=== PATIENT | female | born 1935 | race African-American/Black ===

== ENCOUNTER 2019-02-09 15:36 | Inpatient (IN) | payer MEDICARE, MEDICAID ==
[~2019-02-09] VITALS: Ht 160 cm; Wt 51.3 kg
[2019-02-09 15:40] VITALS: BP 150/72
--- NOTE | 2019-02-09 15:40 | NUR ---
ED Nurse Note: pt was brought in by ambulance c/o near syncopal episode, no loc per ems, pt is confused, unable to state name, pt keep on stating she will be picked up by her mom. pt suddenly laugh and mention things and name. pt vs within normal limit. will continue to monitor.
[2019-02-09] MEDS ORDERED: MULTIVITAMINS1 EAC8 ORAL (15:48)
[2019-02-09] MEDS ORDERED: CRANBERRY450 M4 PO (15:48)
[2019-02-09] MEDS ORDERED: CAL MAG ZINC +1 EACH PO (15:48)
[2019-02-09] MEDS ORDERED: ARICEPT10 MG ORAL (15:48)
[2019-02-09] MEDS ORDERED: ASPIRIN81 MG ORAL (15:48)
[2019-02-09] MEDS ORDERED: NAMENDA10 MG ORAL (15:48)
[2019-02-09] MEDS ORDERED: TRAMADOL HCL50 MG ORAL (15:48)
[2019-02-09] MEDS ORDERED: ACETAMINOPHEN325 M1 ORAL (15:48)
[2019-02-09] MEDS ORDERED: DULCOLAX10 MG RC (15:48)
[2019-02-09] MEDS ORDERED: COLACE100 MG ORAL (15:48)
[2019-02-09] MEDS ORDERED: NORVASC10 MG ORAL (15:48)
--- NOTE | 2019-02-09 16:10 | NUR ---
ED Nurse Note: pt unable to give urine sample for now.
[2019-02-09 16:14] LABS: BASOPHILS % (AUTO) 1.1 % (0.0-2.0); EOSINOPHILS % (AUTO) 1.1 % (0.0-3.0); HEMATOCRIT 37.4 % (37.0-47.0); LYMPHOCYTES % (AUTO) 40.2 % (20.0-45.0); MEAN CORPUSCULAR VOLUME 79 FL (80-99); MONOCYTES % (AUTO) 7.2 % (1.0-10.0); NEUTROPHILS % (AUTO) 50.4 % (45.0-75.0); PLATELET COUNT 178 K/UL (150-450); RED BLOOD COUNT 4.74 M/UL (4.20-5.40); RED CELL DISTRIBUTION WIDTH 12.4 % (11.6-14.8); WHITE BLOOD COUNT 4.9 K/UL (4.8-10.8)
[2019-02-09 16:27] LABS: ANION GAP 11 mmol/L (5-15); BLOOD UREA NITROGEN 19 mg/dL (7-18); CALCIUM 9.3 MG/DL (8.5-10.1); CARBON DIOXIDE 27 MMOL/L (21-32); CHLORIDE 108 MMOL/L (98-107); CREATININE 1.5 MG/DL (0.55-1.30); POTASSIUM 3.8 MMOL/L (3.5-5.1); SODIUM 145 MMOL/L (136-145)
--- NOTE | 2019-02-09 16:37 | Emergency Room Report ---
History of Present Illness General Chief Complaint: Syncope Source: Patient, EMS Present Illness HPI Patient is an 83-year-old female sent in by [facility] after possible syncopal episode. Patient had been noted to have syncope at her psych facility. Patient was sent in by [facility]. Patient denies any current complaints. Patient denies any current locations of pain.History is markedly limited by patient's being a poor historian. Allergies: Coded Allergies: No Known Allergies (Unverified , 02/09/19) Patient History Past Medical History: see triage record Reviewed Nursing Documentation: PMH: Agreed; PSxH: Agreed Nursing Documentation-PMH Past Medical History: No History, Except For Hx Cerebrovascular Accident: Yes Review of Systems All Other Systems: limited - Review of systems: Review systems is limited by patient's being a poor historian Physical Exam Vital Signs Date Time Temp Pulse Resp B/P (MAP) Pulse Ox O2 Delivery O2 Flow Rate FiO2 02/09/19 15:32 98.2 64 18 132/75 (94) 100 General Appearance: alert, non-toxic, thin, Chronically Ill Head: normocephalic ENT: hearing grossly normal Neck: full range of motion Respiratory: normal inspection, lungs clear Gastrointestinal: normal inspection, normal bowel sounds, non tender, soft Musculoskeletal: normal inspection, back normal Neurologic: normal inspection, alert, oriented x3 Skin: normal inspection Medical Decision Making Restraint Attestation I, Stanley Crisostomo MD, have personally evaluated this patient. Laboratory tests have been reviewed and addressed accordingly. The patient is deemed to present a danger to themselves and/or others. This is based on the exam, history ( provided by patient, EMS/[facility] and/or family) and observed or reported behavior. Attempts for non-invasive measures have been considered and/or attempted, however, have been futile. It is in the best interest of the nursing staff, the patient, and others involved in this patient's care that behavioral restraints be applied. Patient evaluation reveals the following: Patient with unsteady gait attempting to get out of bed. Diagnostic Impression: Primary Impression: Syncope Additional Impressions: Hypothyroid Elevated brain natriuretic peptide (BNP) level ER Course Patient presented for syncope. Differential diagnosis include was not limited to dehydration, CVA, arrhythmia, congestive heart failure among others. Because of complexity of patient's case laboratory testing and imaging studies were ordered. Patient was noted to be awake and alert. CT imaging was ordered however patient refused. Patient was noted to have elevated BNP. She does not appear to be in any respiratory distress. Dr. Moreira was contacted for inpatient management. Labs Test 02/09/19 15:54 02/09/19 18:20 White Blood Count 4.9 K/UL (4.8-10.8) Red Blood Count 4.74 M/UL (4.20-5.40) Hemoglobin 12.0 G/DL (12.0-16.0) Hematocrit 37.4 % (37.0-47.0) Mean Corpuscular Volume 79 FL (80-99) Mean Corpuscular Hemoglobin 25.4 PG (27.0-31.0) Mean Corpuscular Hemoglobin Concent 32.2 G/DL (32.0-36.0) Red Cell Distribution Width 12.4 % (11.6-14.8) Platelet Count 178 K/UL (150-450) Mean Platelet Volume 6.2 FL (6.5-10.1) Neutrophils (%) (Auto) 50.4 % (45.0-75.0) Lymphocytes (%) (Auto) 40.2 % (20.0-45.0) Monocytes (%) (Auto) 7.2 % (1.0-10.0) Eosinophils (%) (Auto) 1.1 % (0.0-3.0) Basophils (%) (Auto) 1.1 % (0.0-2.0) D-Dimer 0.88 mg/L FEU (0.00-0.49) Sodium Level 145 MMOL/L (136-145) Potassium Level 3.8 MMOL/L (3.5-5.1) Chloride Level 108 MMOL/L (98-107) Carbon Dioxide Level 27 MMOL/L (21-32) Anion Gap 11 mmol/L (5-15) Blood Urea Nitrogen 19 mg/dL (7-18) Creatinine 1.5 MG/DL (0.55-1.30) Estimat Glomerular Filtration Rate mL/min (>60) Glucose Level 166 MG/DL (74-106) Calcium Level 9.3 MG/DL (8.5-10.1) Total Bilirubin 0.6 MG/DL (0.2-1.0) Aspartate Amino Transf (AST/SGOT) 16 U/L (15-37) Alanine Aminotransferase (ALT/SGPT) 17 U/L (12-78) Alkaline Phosphatase 62 U/L (46-116) Troponin I 0.000 ng/mL (0.000-0.056) Pro-B-Type Natriuretic Peptide 790 pg/mL (0-125) Total Protein 7.2 G/DL (6.4-8.2) Albumin 3.9 G/DL (3.4-5.0) Globulin 3.3 g/dL Albumin/Globulin Ratio 1.2 (1.0-2.7) Lipase 169 U/L (73-393) Thyroid Stimulating Hormone (TSH) 6.103 uiU/mL (0.358-3.740) Urine Color Yellow Urine Appearance Clear Urine pH 5 (4.5-8.0) Urine Specific [place] 1.020 (1.005-1.035) Urine Protein 2+ (NEGATIVE) Urine Glucose (UA) Negative (NEGATIVE) Urine Ketones Negative (NEGATIVE) Urine Blood Negative (NEGATIVE) Urine Nitrite Negative (NEGATIVE) Urine Bilirubin Negative (NEGATIVE) Urine Urobilinogen Normal MG/DL (0.0-1.0) Urine Leukocyte Esterase Negative (NEGATIVE) Urine RBC 0 /HPF (0 - 2) Urine WBC 0 /HPF (0 - 2) Urine Squamous Epithelial Cells None /LPF (NONE/OCC) Urine Bacteria None /HPF (NONE) Urine Mucus Occasional /LPF EKG Diagnostic Results Rate: normal Rhythm: NSR ST Segments: no acute changes Rhythm Strip Diag. Results EP Interpretation: yes Rhythm: NSR, no PVC's, no ectopy Last Vital Signs Date Time Temp Pulse Resp B/P (MAP) Pulse Ox O2 Delivery O2 Flow Rate FiO2 02/09/19 15:40 98.2 70 18 150/72 100 Status: unchanged Disposition: ADMITTED INPATIENT Condition: Stable Stanley Crisostomo MD Feb 09, 2019 16:37
[2019-02-09 16:38] LABS: ALANINE AMINOTRANSFERASE 17 U/L (12-78); ALBUMIN 3.9 G/DL (3.4-5.0); ALBUMIN/GLOBULIN RATIO 1.2 (1.0-2.7); ALKALINE PHOSPHATASE 62 U/L (46-116); ASPARTATE AMINO TRANSFERASE 16 U/L (15-37); BILIRUBIN,TOTAL 0.6 MG/DL (0.2-1.0)
[2019-02-09 17:00] VITALS: BP 130/73
[2019-02-09 18:35] LABS: APPEARANCE,URINE CLEAR; BILIRUBIN, URINE NEGATIVE (NEGATIVE); GLUCOSE, URINE (UA) NEGATIVE (NEGATIVE); KETONES,URINE NEGATIVE (NEGATIVE); LEUKOCYTE ESTERASE ,URINE NEGATIVE (NEGATIVE); NITRITE,URINE NEGATIVE (NEGATIVE); PH,URINE 5 (4.5-8.0); PROTEIN,URINE 2+ (NEGATIVE); UROBILINOGEN,URINE NORMAL MG/DL (0.0-1.0)
[2019-02-09 18:40] LABS: COLOR,URINE YELLOW
[2019-02-09 19:29] VITALS: BP 135/89
--- NOTE | 2019-02-09 19:30 | NUR ---
ED Nurse Note: RECIEVED REPORT FROM AM NURSE TO RESUME CARE, PT IS SITTING ON SIDE OF BED, AWAKE AND ALERT, PT IS NOT ON MONITORING, PT HAS SITTER AT BEDSIDE PT IS CONFUSED AND DISORIENTED, PT WAITING FOR ROOM FOR ADMISSION TO HOSPITAL, PT IS TELE ADMIT FOR SYNCOPE SO PLACED ON MONITOIRNG, V/S TAKEN, PT DNIES PAIN AND HAS NO SOB OR LABORED BREATHING NOTED, BEDSIDE COMMODE AT BEDSIDE, PT IS AMBULATING NEXT TO BED, WILL RESUME CARE ORDERED AND CONTINUE TO CLOSELY MONITOR AND PREPARE FOR ADMISSION.
[2019-02-09 19:35] VITALS: BP 135/89
--- NOTE | 2019-02-09 21:05 | NUR ---
ED Nurse Note: PT CONTINUES TO REST IN BED, CONVERSING WITH SITTER AT BEDSIDE AND REQUIRING VERY FREQUENT RE-ORIENTATION AND DIRECTION, PT THINKS SHE NEEDS TO GO AND TAKE CARE OF HER MOTHER, PT DENIES PAIN, NO SOB OR LABORED BREATHING, PT HS ROOM FOR ADMISISON, REPORT GIVEN TO MYAH BUNDY ON UNIT, PT HAS PATENT IV LINE, SITTER REMAINS AT BEDSIDE, BELONGINGS LIST [id number] AND SWABS COLLECTED, PT BEING TAKEN TO FLOOR UNIT VIA GURNEY AND ACLS PROTOCOLS WITH ER-TECH AND RN.
--- NOTE | 2019-02-09 21:45 | NUR ---
NURSE NOTES: RECEIVED PATIENT FROM ER VIA MILAN, REPORT RECEIVED FROM CELERY WRAPPER CRISTIAN. ADM DX OF SYNCOPE/GEN WEAKNESS, PRIMARY DR ONEAL. PATIENT CAME WITH SITTER DUE TO BEING DISORIENTED AND CONFUSED. ON RA, NO SOB, NO ACUTE DISTRESS. IV ON RFA INTACT, PATENT. SKIN INTACT. BELONGINGS CHECKED. ORIENTED PATIENT TO SURROUNDINGS. 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 BED IN LOWEST POSITION, LOCKED, ALARMS ON. CALL LIGHT IN REACH. D-DIMER NOTED 0.88, DR ONEAL MADE AWARE.
[2019-02-09 22:00] VITALS: BP 143/87
--- NOTE | 2019-02-09 22:10 | Consultation ---
History of Present Illness General Date patient seen: Feb 09, 2019 Chief Complaint: Syncope Referring physician: Dr. Moreira Present Illness HPI Karen Mancilla is an 83-year-old female with a PMH of dementia who is a psychiatric SNF patient was BIBA to [facility] after possible episode of syncope. Neurological consultation has been requested for her at this time. She is in bed, moving all extremities and accompanied by a sitter at this time. She is very confused, also possibly hallucinating. Allergies: Coded Allergies: No Known Allergies (Unverified , 02/09/19) Medication History Scheduled Amlodipine Besylate (Norvasc), 10 MG ORAL DAILY, (Reported) Aspirin* (Aspirin*), 81 MG ORAL DAILY, (Reported) Docusate Sodium* (Colace*), 100 MG ORAL DAILY, (Reported) Donepezil Hcl* (Aricept*), 10 MG ORAL DAILY, (Reported) Memantine Hcl* (Namenda*), 10 MG ORAL DAILY, (Reported) Multivitamin With Minerals (Multivitamins With Minerals*), 1 TAB ORAL DAILY, ( Reported) Scheduled PRN Acetaminophen* (Acetaminophen 325MG Tablet*), 650 MG ORAL Q4H PRN for Pain Scale (3-5), (Reported) Tramadol Hcl* (Ultram*), 50 MG ORAL Q6H PRN for For Pain, (Reported) Miscellaneous Medications Bisacodyl (Dulcolax), 10 MG RC, (Reported) Ca Carb/Vit D3/Mag Ox/Zn Oxide (Yusef Mag Zinc + D Tablet), 1 EACH PO, (Reported) Cranberry Fruit Concentrate (Cranberry), 450 MG PO, (Reported) Patient History Limited by: medical condition History Provided By: Medical Record Healthcare decision maker Resuscitation status Advanced Directive on File Past Medical/Surgical History Past Medical/Surgical History: (1) Blind left eye Physical Exam General Appearance: WD/WN, no apparent distress, alert, confused, thin HEENT: normocephalic, atraumatic, anicteric, mucous membranes moist, PERRL, EOMI, pharynx normal, supple, no JVD Neck: non-tender, normal alignment, supple, normal inspection Respiratory/Chest: normal breath sounds, no respiratory distress, no accessory muscle use Cardiovascular/Chest: normal peripheral pulses Extremities: normal range of motion, non-tender, normal inspection, no calf tenderness, normal capillary refill, non-pitting Skin Exam: normal pigmentation, warm/dry Neurologic: alert, responsive, motor weakness - generalized but AG x 4, disoriented, other Physical Exam Narrative Patient is alert and answers to her name but does not follow commands, she is moving all extremities and is AG with them. She tracks with her eyes and responds to unseen stimuli at times. Last 24 Hour Vital Signs Date Time Temp Pulse Resp B/P (MAP) Pulse Ox O2 Delivery O2 Flow Rate FiO2 02/09/19 21:29 98.2 94 12 135/89 100 Room Air 02/09/19 19:35 98.2 94 12 135/89 100 Room Air 02/09/19 19:29 101 12 135/89 98 Room Air 02/09/19 17:00 80 20 130/73 100 Room Air 02/09/19 15:40 98.2 70 18 150/72 100 02/09/19 15:32 98.2 64 18 132/75 (94) 100 Laboratory Tests Test 02/09/19 15:54 02/09/19 18:20 White Blood Count 4.9 K/UL (4.8-10.8) Red Blood Count 4.74 M/UL (4.20-5.40) Hemoglobin 12.0 G/DL (12.0-16.0) Hematocrit 37.4 % (37.0-47.0) Mean Corpuscular Volume 79 FL (80-99) L Mean Corpuscular Hemoglobin 25.4 PG (27.0-31.0) L Mean Corpuscular Hemoglobin Concent 32.2 G/DL (32.0-36.0) Red Cell Distribution Width 12.4 % (11.6-14.8) Platelet Count 178 K/UL (150-450) Mean Platelet Volume 6.2 FL (6.5-10.1) L Neutrophils (%) (Auto) 50.4 % (45.0-75.0) Lymphocytes (%) (Auto) 40.2 % (20.0-45.0) Monocytes (%) (Auto) 7.2 % (1.0-10.0) Eosinophils (%) (Auto) 1.1 % (0.0-3.0) Basophils (%) (Auto) 1.1 % (0.0-2.0) D-Dimer 0.88 mg/L FEU (0.00-0.49) H Sodium Level 145 MMOL/L (136-145) Potassium Level 3.8 MMOL/L (3.5-5.1) Chloride Level 108 MMOL/L (98-107) H Carbon Dioxide Level 27 MMOL/L (21-32) Anion Gap 11 mmol/L (5-15) Blood Urea Nitrogen 19 mg/dL (7-18) H Creatinine 1.5 MG/DL (0.55-1.30) H Estimat Glomerular Filtration Rate mL/min (>60) Glucose Level 166 MG/DL (74-106) H Calcium Level 9.3 MG/DL (8.5-10.1) Total Bilirubin 0.6 MG/DL (0.2-1.0) Aspartate Amino Transf (AST/SGOT) 16 U/L (15-37) Alanine Aminotransferase (ALT/SGPT) 17 U/L (12-78) Alkaline Phosphatase 62 U/L (46-116) Troponin I 0.000 ng/mL (0.000-0.056) Pro-B-Type Natriuretic Peptide 790 pg/mL (0-125) H Total Protein 7.2 G/DL (6.4-8.2) Albumin 3.9 G/DL (3.4-5.0) Globulin 3.3 g/dL Albumin/Globulin Ratio 1.2 (1.0-2.7) Lipase 169 U/L (73-393) Thyroid Stimulating Hormone (TSH) 6.103 uiU/mL (0.358-3.740) Urine Color Yellow Urine Appearance Clear Urine pH 5 (4.5-8.0) Urine Specific [place] 1.020 (1.005-1.035) Urine Protein 2+ (NEGATIVE) H Urine Glucose (UA) Negative (NEGATIVE) Urine Ketones Negative (NEGATIVE) Urine Blood Negative (NEGATIVE) Urine Nitrite Negative (NEGATIVE) Urine Bilirubin Negative (NEGATIVE) Urine Urobilinogen Normal MG/DL (0.0-1.0) Urine Leukocyte Esterase Negative (NEGATIVE) Urine RBC 0 /HPF (0 - 2) Urine WBC 0 /HPF (0 - 2) Urine Squamous Epithelial Cells None /LPF (NONE/OCC) Urine Bacteria None /HPF (NONE) Urine Mucus Occasional /LPF Height (Feet): 5 Height (Inches): 3.00 Weight (Pounds): 100 Assessment/Plan Problem List: (1) Blind left eye ICD Codes: H54.40 - Blindness, one eye, unspecified eye SNOMED: 429681330 (2) Hypothyroid ICD Codes: E03.9 - Hypothyroidism, unspecified SNOMED: 42933191, 720720536 (3) Elevated brain natriuretic peptide (BNP) level ICD Codes: R79.89 - Other specified abnormal findings of blood chemistry SNOMED: 855978669, 775987526 (4) Syncope ICD Codes: R55 - Syncope and collapse SNOMED: 680932230 Status: stable Assessment/Plan: Dementia with Syncope, Possible delirium with non focal exam. Will perform MRI Brain w/o contrast , given possible TIA Q4 Hour Neuro Obs SBP<140 Check TSH- treat Hypothryoidism with 25mcg/ day to start if present Check Lipids, Iron panel PT Eval Sitter as needed Avoid administration of benzodiazapenes, haldol, opioids, and anticholinergic drugs. Frequently reorient the patient Help maintain good sleep hygiene by making the room dark and quiet at night and minimizing non essential care interventions. Check Swallow with Giuliana Jarvis N.P. Feb 09, 2019 22:10
[2019-02-09] MEDS ORDERED: Acetaminophen 500mg (ES) tab ORAL PRN (22:45)
[2019-02-10] VITALS (7 sets, daily range): BP systolic 143–173; BP diastolic 78–87
--- NOTE | 2019-02-10 00:15 | Consultation ---
DATE OF CONSULTATION: 02/09/2019 CONSULTING PHYSICIAN: Christiano Fernández M.D. HISTORY OF PRESENT ILLNESS: This is an 83-year-old female who was familiar with Group Home. The patient has a multiple problems including hypertension, dementia, anxiety disorder, constipation, arthritis. In addition, she has a history of anxiety. The patient has poor memory. She is a poor historian and unable to answer the questions appropriately. The patient has been uncooperative with the head CT. The patient is not able to understand process, communicate, nor appreciate the information given to her. PAST PSYCHIATRIC HISTORY: Anxiety, dementia. No suicide attempt. PAST MEDICAL HISTORY: As above. ALLERGIES: No known drug allergies. SUBSTANCE ABUSE HISTORY: No known history of illicit drug use or alcohol. MENTAL STATUS EXAMINATION: The patient is alert, oriented times self, place, however she has poor insight into the situation she is in due to cognitive impairment and poor memory. The patient's mood is irritable. Affect is constricted, congruent with mood. Thought process, concrete and illogical. Thought content, no suicidal or homicidal ideation. She is paranoid. Memory is impaired. ASSESSMENT: [place] I Dementia, most likely Alzheimer. Anxiety disorder. [place] II Deferred. [place] III As above. [place] IV As above. [place] V 20. PLAN: 1. The patient was discontinued on Namenda or Aricept. 2. We will start the patient on Celexa 10 mg in the morning. We will continue to follow and readjust the medications. 3. The patient lacks capacity to use head CT. She does not have capacity to make decisions. Christiano Fernández M.D. DR: LORIE JOB#: [id number] CC:
--- NOTE | 2019-02-10 07:07 | NUR ---
NURSE NOTES: Received patient from Cristy. RN in bed, patient is alert, and confused. sitter at bedside. IV is RFA, SL. Bed is on lowest level, brakes engaged for safety. Call light is within easy reach. Will continue with plan of care.
--- NOTE | 2019-02-10 07:11 | NUR ---
HAND-OFF: Report given to Torie GLASGOW.
[2019-02-10 08:33] LABS: BASOPHILS % (AUTO) 0.8 % (0.0-2.0); EOSINOPHILS % (AUTO) 1.2 % (0.0-3.0); HEMATOCRIT 37.1 % (37.0-47.0); HEMOGLOBIN 11.8 G/DL (12.0-16.0); LYMPHOCYTES % (AUTO) 38.4 % (20.0-45.0); MEAN CORPUSCULAR VOLUME 81 FL (80-99); MONOCYTES % (AUTO) 8.9 % (1.0-10.0); NEUTROPHILS % (AUTO) 50.8 % (45.0-75.0); PLATELET COUNT 180 K/UL (150-450); RED BLOOD COUNT 4.57 M/UL (4.20-5.40); RED CELL DISTRIBUTION WIDTH 12.8 % (11.6-14.8)
[2019-02-10] MEDS: Citalopram Hydrobromide 10mg Tab ORAL SCH (08:44)
--- NOTE | 2019-02-10 08:59 | NUR ---
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 GENERALIZED WEAKNESS VS: BP 150/72, P 101, T 98.2, RR 20, SpO2 100 BUN 19, CR 1.5, GLUCOSE 166, TSH 6.103 IS:TYLENOL 500MG CELEXA 10mg ADMITTED TO TELE DCP:RETURN TO [facility]
[2019-02-10 09:01] LABS: ALANINE AMINOTRANSFERASE 20 U/L (12-78); ALBUMIN 3.3 G/DL (3.4-5.0); ALBUMIN/GLOBULIN RATIO 0.9 (1.0-2.7); ALKALINE PHOSPHATASE 57 U/L (46-116); ANION GAP 8 mmol/L (5-15); ASPARTATE AMINO TRANSFERASE 16 U/L (15-37); BILIRUBIN,TOTAL 0.7 MG/DL (0.2-1.0); BLOOD UREA NITROGEN 19 mg/dL (7-18); CALCIUM 9.1 MG/DL (8.5-10.1); CARBON DIOXIDE 28 MMOL/L (21-32); CHLORIDE 110 MMOL/L (98-107); CREATININE 1.2 MG/DL (0.55-1.30); POTASSIUM 3.7 MMOL/L (3.5-5.1); SODIUM 146 MMOL/L (136-145)
--- NOTE | 2019-02-10 10:25 | Neurology Progress Note ---
Interim History Interim History Interim History This visit was conducted on February 10, [address] Dragan Farmer. Review of Systems Neuro Review of Systems Exam unchanged- MRI poor study- no acute infarct but nondescriptive due to artifact . Objective Physical Exam Last Vital Signs Date Time Temp Pulse Resp B/P (MAP) Pulse Ox O2 Delivery O2 Flow Rate FiO2 02/10/19 09:00 Room Air 02/10/19 08:00 64 02/10/19 08:00 99.0 17 160/87 (111) 98 Laboratory Tests Test 02/09/19 15:54 02/09/19 18:20 02/10/19 08:03 White Blood Count 4.9 K/UL (4.8-10.8) 5.0 K/UL (4.8-10.8) Red Blood Count 4.74 M/UL (4.20-5.40) 4.57 M/UL (4.20-5.40) Hemoglobin 12.0 G/DL (12.0-16.0) 11.8 G/DL (12.0-16.0) L Hematocrit 37.4 % (37.0-47.0) 37.1 % (37.0-47.0) Mean Corpuscular Volume 79 FL (80-99) L 81 FL (80-99) Mean Corpuscular Hemoglobin 25.4 PG (27.0-31.0) L 25.8 PG (27.0-31.0) L Mean Corpuscular Hemoglobin Concent 32.2 G/DL (32.0-36.0) 31.7 G/DL (32.0-36.0) L Red Cell Distribution Width 12.4 % (11.6-14.8) 12.8 % (11.6-14.8) Platelet Count 178 K/UL (150-450) 180 K/UL (150-450) Mean Platelet Volume 6.2 FL (6.5-10.1) L 6.9 FL (6.5-10.1) Neutrophils (%) (Auto) 50.4 % (45.0-75.0) 50.8 % (45.0-75.0) Lymphocytes (%) (Auto) 40.2 % (20.0-45.0) 38.4 % (20.0-45.0) Monocytes (%) (Auto) 7.2 % (1.0-10.0) 8.9 % (1.0-10.0) Eosinophils (%) (Auto) 1.1 % (0.0-3.0) 1.2 % (0.0-3.0) Basophils (%) (Auto) 1.1 % (0.0-2.0) 0.8 % (0.0-2.0) D-Dimer 0.88 mg/L FEU (0.00-0.49) H Sodium Level 145 MMOL/L (136-145) 146 MMOL/L (136-145) H Potassium Level 3.8 MMOL/L (3.5-5.1) 3.7 MMOL/L (3.5-5.1) Chloride Level 108 MMOL/L (98-107) H 110 MMOL/L (98-107) H Carbon Dioxide Level 27 MMOL/L (21-32) 28 MMOL/L (21-32) Anion Gap 11 mmol/L (5-15) 8 mmol/L (5-15) Blood Urea Nitrogen 19 mg/dL (7-18) H 19 mg/dL (7-18) H Creatinine 1.5 MG/DL (0.55-1.30) H 1.2 MG/DL (0.55-1.30) Estimat Glomerular Filtration Rate mL/min (>60) mL/min (>60) Glucose Level 166 MG/DL (74-106) H 97 MG/DL (74-106) Calcium Level 9.3 MG/DL (8.5-10.1) 9.1 MG/DL (8.5-10.1) Total Bilirubin 0.6 MG/DL (0.2-1.0) 0.7 MG/DL (0.2-1.0) Aspartate Amino Transf (AST/SGOT) 16 U/L (15-37) 16 U/L (15-37) Alanine Aminotransferase (ALT/SGPT) 17 U/L (12-78) 20 U/L (12-78) Alkaline Phosphatase 62 U/L (46-116) 57 U/L (46-116) Troponin I 0.000 ng/mL (0.000-0.056) Pro-B-Type Natriuretic Peptide 790 pg/mL (0-125) H Total Protein 7.2 G/DL (6.4-8.2) 6.8 G/DL (6.4-8.2) Albumin 3.9 G/DL (3.4-5.0) 3.3 G/DL (3.4-5.0) L Globulin 3.3 g/dL 3.5 g/dL Albumin/Globulin Ratio 1.2 (1.0-2.7) 0.9 (1.0-2.7) L Lipase 169 U/L (73-393) Thyroid Stimulating Hormone (TSH) 6.103 uiU/mL (0.358-3.740) Urine Color Yellow Urine Appearance Clear Urine pH 5 (4.5-8.0) Urine Specific [place] 1.020 (1.005-1.035) Urine Protein 2+ (NEGATIVE) H Urine Glucose (UA) Negative (NEGATIVE) Urine Ketones Negative (NEGATIVE) Urine Blood Negative (NEGATIVE) Urine Nitrite Negative (NEGATIVE) Urine Bilirubin Negative (NEGATIVE) Urine Urobilinogen Normal MG/DL (0.0-1.0) Urine Leukocyte Esterase Negative (NEGATIVE) Urine RBC 0 /HPF (0 - 2) Urine WBC 0 /HPF (0 - 2) Urine Squamous Epithelial Cells None /LPF (NONE/OCC) Urine Bacteria None /HPF (NONE) Urine Mucus Occasional /LPF Neurologic Exam Objective General Appearance: WD/WN, no apparent distress, alert, confused, thin HEENT: normocephalic, atraumatic, anicteric, mucous membranes moist, PERRL, EOMI, pharynx normal, supple, no JVD Neck: non-tender, normal alignment, supple, normal inspection Respiratory/Chest: normal breath sounds, no respiratory distress, no accessory muscle use Cardiovascular/Chest: normal peripheral pulses Extremities: normal range of motion, non-tender, normal inspection, no calf tenderness, normal capillary refill, non-pitting Skin Exam: normal pigmentation, warm/dry Neurologic: alert, responsive, motor weakness - generalized but AG x 4, disoriented, other Physical Exam Narrative Patient is alert and answers to her name but does not follow commands, she is moving all extremities and is AG with them. She tracks with her eyes without additional interactions - appears calmer today. PT TOLERATED CURRENT DIET WITHOUT OVERT S/S OF ASPIRATION. PT PARTIALLY MET PO INTAKE GOALS. NURSING STAFF MET ASPIRATION PRECAUTIONS GOALS. Impression/Recommendations Problems: (1) Blind left eye (2) Hypothyroid (3) Elevated brain natriuretic peptide (BNP) level (4) Syncope Diagnostic Impression MRI negative but poor study Patient's baseline is demented but with less agitation than previously seen, likely secondary to hypertension and metabolic disturbance. Swallow study passed Recommendations Patient's exam stable Still recommend SBP<140 as this patient's BP continues to run above this goal by 30 points Q4 Neuro OBs Maintain adequate nutrition PT Eval Stable for discharge from a neurological perspective . Giuliana Watts N.P. Feb 10, 2019 10:25
--- NOTE | 2019-02-10 10:25 | NUR ---
NURSE NOTES: Left a message with Karolyn for Dr. Herrera, pt's BP is 160/87. Will continue to monitor.
--- NOTE | 2019-02-10 11:15 | NUR ---
Dr. Herrera ordered Norvasc 10mg daily. Order carried out and medication administered to pt. will continue to monitor
[2019-02-10] MEDS ORDERED: LORazepam 0.5mg tab ORAL PRN (12:30)
--- NOTE | 2019-02-10 16:05 | Cardiology Report ---
APPROVED REPORT EKG Measurement Heart [id number] Sinus bradycardia Moderate voltage criteria for LVH, may be normal variant Borderline ECG biphasic t waves recommend repeating the ekg
[2019-02-10] MEDS ORDERED: HydrALAZINE 25mg tab ORAL PRN (16:15)
--- NOTE | 2019-02-10 16:17 | Consultation ---
Consult Note Consult Note Dr Ramsay requested consult for BP management Patient is an 83-year-old female [facility] by [facility] after possible syncopal episode. Patient had been noted to have syncope at her psych facility. Patient was sent in by [facility]. Patient denies any current complaints. Patient denies any current locations of pain.History is markedly limited by patient's being a poor historian. No Known Allergies (Unverified , 02/09/19) Past Medical History: No History, Except For Hx Cerebrovascular Accident: Yes Dementia HypoThyroid examined data reviewed med list reviewed . Assessment/Plan HTN- Dementia- Syncope- BP control : Norvasc and PRN Hydralazin Gastric support synthroid per orders David Herrera MD Feb 10, 2019 16:17
[2019-02-10] MEDS ORDERED: Acetaminophen 500mg (ES) tab ORAL PRN (16:30)
--- NOTE | 2019-02-10 17:31 | NUR ---
ST NOTE: BEDSIDE SWALLOW EVAL RECEIVED BEDSIDE SWALLOW EVAL CHART REVIEWED PRIOR THE EVALUATION PT IS A 83-YEAR-OLD FEMALE WHO WAS ADMITTED DUE TO SYNCOPE AND GENERAL WEAKNESS. DYSPHAGIA RISK FACTORS: H/O CVA, DEMENTIA, H/O FALLING, HTN. SCHIZOAFFECTIVE DISORDER PT RESIDES AT SNF. PT WAS ON MECH SOFT(CHOPPED) DIET PER PT'S POLST: FULL CODE AND FULL TREATMENT, OKAY TRIAL FOR ARTIFICIAL FEEDING CURRENT STATUS: PT SEEN AT BEDSIDE IN PM. ALERT, REQUIRED MAX CUES TO PARTICIPATE, CONFUSED. GIVEN PO TRIALS: THIN(TSP/CUP), PUREE(TSP) INITIAL IMPRESSION: POOR DENTITION MILDLY ORAL TRANSIT TIME(3 SECONDS) UNTIL PT INITIATED PHARYNGEAL SWALLOW, FAIR LARYNGEAL ELEVATION, NO OVERT S/S OF ASPIRATION. HAS SOME RISK FOR ASPIRATION. RECOMMENDATIONS: 1. CHANGED DIET TO MECH SOFT(GROUND) WITH THIN LIQUIDS. 2. ASPIRATION PRECAUTIONS WITH 1TO1 FEED 3. CONSIDER MBSS IF NEEDED D/W [place]. POSTED ASPIRATION PRECAUTIONS SIGN
[2019-02-10] MEDS: Docusate 100mg cap ORAL SCH (18:27)
--- NOTE | 2019-02-10 19:15 | NUR ---
NURSE NOTES: Received report Torie RN, pt. in bed awake- opens eyes to name, cardiac monitoring on, no signs or symptoms of acute cardiac or respiratory distress noted, bed in lowest position and call light within easy reach, bed alarm on, side rails up x's3 and safety brakes engaged, pt. appears to be sating well on Room air at 97%- no distress noted, comfort measures provided, all needs attended to, pt. is clean and dry in bed, Bilateral wrist restraints removed- pulses palpable in bilateral wrists and skin intact, Left wrist 24G IV intact and patent- SL, safety measures continued, will continue with plan of care.
--- NOTE | 2019-02-10 19:16 | NUR ---
HAND-OFF: Report given to VICKIE GLASGOW.
[2019-02-11] VITALS (7 sets, daily range): BP systolic 113–173; BP diastolic 63–110
--- NOTE | 2019-02-11 00:15 | History and Physical Report ---
DATE OF ADMISSION: 02/09/2019 HISTORY OF PRESENT ILLNESS: The patient is admitted for possible syncope at the [place] [facility], altered mental status, and she had head CT. Also admitted for azotemia. The patient basically denies headache. Denies shortness of breath. Denies cough. Denies chills. The patient is a very poor historian. PAST MEDICAL HISTORY: Organic brain syndrome, history of CVA, history of hypothyroidism, constipation, hypertension. PAST SURGICAL HISTORY: Unable to obtain. MEDICATIONS: Namenda, Colace, bisacodyl, amlodipine. ALLERGIES: No known allergies. FAMILY HISTORY: Unable to obtain. SOCIAL HISTORY: She denies alcohol or illicit drugs. Comes from a [place] [facility]. REVIEW OF SYSTEMS: Unable to obtain, very poor historian. PHYSICAL EXAMINATION: VITAL SIGNS: Temperature 98.8, pulse is 67, blood pressure 161/86. HEENT: PERRLA. NECK: Supple. CHEST: Clear to auscultation. CARDIOVASCULAR: Regular rate and rhythm. GASTROINTESTINAL: Soft. Positive bowel sounds. EXTREMITIES: No edema. NEUROLOGIC: Reflexes equal on both sides. Poor historian. LABORATORY DATA: WBC of 4.9, hemoglobin 12, platelet 178,000. Sodium 145, potassium 3.8, BUN of 19, creatinine 1.5. ASSESSMENT AND PLAN: 1. Agitation. 2. Syncope. 3. History of CVA. 4. Hypertension. Syncopal workup. Dr. Farmer, Dr. Herrera, Dr. Fernández, and Dr. Pressley have been consulted for the above-mentioned diagnoses and treatment. Ngozi Moreira M.D. DR: RAMON JOB#: [id number] CC:
[2019-02-11] MEDS: Levothyroxine 25mcg tab ORAL SCH (05:33)
--- NOTE | 2019-02-11 05:45 | Progress Note ---
DATE: 02/10/2019 NOTE: POOR AUDIO SUBJECTIVE: The patient presents with some agitation, behavior, confused. The patient has waxing and waning consciousness . She is unable to provide any history. The patient's residential. MENTAL STATUS EXAMINATION: The patient is confused, disoriented. Mood is anxious and agitated. Affect is flat. Thought process. PLAN: Continue the current medications. Provide the patient with. Christiano Fernández M.D. DR: JULIANO JOB#: [id number] CC: TABATHA
--- NOTE | 2019-02-11 07:03 | NUR ---
HAND-OFF: Report given to Emely RN, pt. remains stable and no signs of distress noted.
--- NOTE | 2019-02-11 07:05 | NUR ---
NURSE NOTES: Received report from Carlito/RN, Patient is asleep lying semi-zhu's; resting comfortably, on room air, No sign of distress/SOB noted. IV on left wrist patent, no bleeding or infiltration noted. Bed in low position and locked, call light within reach. Will continue plan of care.
[2019-02-11 07:41] LABS: EOSINOPHILS % (AUTO) 1.2 % (0.0-3.0); HEMATOCRIT 41.1 % (37.0-47.0); HEMOGLOBIN 13.1 G/DL (12.0-16.0); MEAN CORPUSCULAR VOLUME 81 FL (80-99); NEUTROPHILS % (AUTO) 53.8 % (45.0-75.0); PLATELET COUNT 188 K/UL (150-450); RED BLOOD COUNT 5.08 M/UL (4.20-5.40); RED CELL DISTRIBUTION WIDTH 12.9 % (11.6-14.8)
--- NOTE | 2019-02-11 07:54 | NUR ---
CASE MANAGEMENT:REVIEW 02/11/19 SI: SYNCOPE. HTN 97.7 63 18 139/69 96% ON RA *LABS CURRENTLY PENDING IS: ASA PO QD SYNTHROID PO QD PROTONIX PO Q12 NORVASC PO QD CELEXA PO QD : TELEMETRY DCP: FROM [facility]
[2019-02-11 08:16] LABS: ALANINE AMINOTRANSFERASE 25 U/L (12-78); ALBUMIN 3.6 G/DL (3.4-5.0); ALBUMIN/GLOBULIN RATIO 0.9 (1.0-2.7); ALKALINE PHOSPHATASE 65 U/L (46-116); ANION GAP 9 mmol/L (5-15); ASPARTATE AMINO TRANSFERASE 29 U/L (15-37); BILIRUBIN,TOTAL 1.1 MG/DL (0.2-1.0); BLOOD UREA NITROGEN 13 mg/dL (7-18); CALCIUM 9.3 MG/DL (8.5-10.1); CARBON DIOXIDE 28 MMOL/L (21-32); CHLORIDE 107 MMOL/L (98-107); CHOLESTEROL 210 MG/DL (< 200); FERRITIN 41 NG/ML (8-388); GAMMA GLUTAMYL TRANSPEPTIDASE 16 U/L (5-85); HDL CHOLESTEROL 110 MG/DL (40-60); PHOSPHORUS 2.9 MG/DL (2.5-4.9); POTASSIUM 3.3 MMOL/L (3.5-5.1); SODIUM 144 MMOL/L (136-145); TRIGLYCERIDES 50 MG/DL (30-150)
[2019-02-11 08:17] LABS: BILIRUBIN,DIRECT 0.2 MG/DL (0.0-0.3)
[2019-02-11 08:40] LABS: % IRON SATURATION 32 % (15-50); IRON 87 ug/dL (50-175); TOTAL IRON BINDING CAPACITY 274 ug/dL (250-450)
[2019-02-11] MEDS: Aspirin Baby 81mg ORAL SCH (09:07)
[2019-02-11] MEDS: Citalopram Hydrobromide 10mg Tab ORAL SCH (09:07)
[2019-02-11] MEDS: Docusate 100mg cap ORAL SCH ×3 (09:07→18:42)
--- NOTE | 2019-02-11 10:11 | NUR ---
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 PT UNABLE TO STAY STILL FOR EXAM, EVEN WITH SEDATION. TJB 10:00
[2019-02-11] MEDS ORDERED: LORazepam Inj 2mg/ml 1ml IV PRN (11:00)
--- NOTE | 2019-02-11 13:08 | NUR ---
Very limited MRI Brain completed. Even with IV 2mg Ativan given, pt went to sleep but would not stay asleep. This was a second attempt. irma
--- NOTE | 2019-02-11 14:10 | Nephrology Progress Note ---
Assessment/Plan Assessment HTN- Dementia- Syncope- Plan K supplement PO BP control : Norvasc and PRN Hydralazine Gastric support synthroid per orders Subjective Constitutional: Reports: malaise Objective Objective Last 24 Hour Vital Signs Date Time Temp Pulse Resp B/P (MAP) Pulse Ox O2 Delivery O2 Flow Rate FiO2 02/11/19 12:00 97.9 77 20 113/67 (82) 96 02/11/19 09:07 95 151/110 02/11/19 09:00 Room Air 02/11/19 08:00 97.6 95 21 151/110 (124) 100 02/11/19 08:00 59 02/11/19 04:00 63 02/11/19 04:00 97.7 63 18 139/69 (92) 96 02/11/19 01:00 84 18 123/63 (83) 97 02/11/19 00:00 87 02/11/19 00:00 98.0 79 18 173/86 (115) 97 02/10/19 23:42 98.0 79 18 173/86 (115) 97 02/10/19 23:35 173/86 02/10/19 21:00 Room Air 02/10/19 20:00 97.6 81 18 143/78 (99) 98 02/10/19 20:00 83 02/10/19 16:00 97.3 79 17 154/82 (106) 98 02/10/19 16:00 120 Intake and Output 02/10/19 02/11/19 18:59 06:59 Intake Total 360 ml Output Total 3 ml 251 ml Balance 357 ml -251 ml Intake Oral 360 ml Output Urine Total 3 ml 251 ml # Bowel Movements 1 1 Laboratory Tests 02/11/19 06:06: White Blood Count 5.0, Red Blood Count 5.08, Hemoglobin 13.1, Hematocrit 41.1, Mean Corpuscular Volume 81, Mean Corpuscular Hemoglobin 25.8L, Mean Corpuscular Hemoglobin Concent 31.9L, Red Cell Distribution Width 12.9, Platelet Count 188, Mean Platelet Volume 6.8, Neutrophils (%) (Auto) 53.8, Lymphocytes (%) (Auto) 36.0, Monocytes (%) (Auto) 8.0, Eosinophils (%) (Auto) 1.2, Basophils (%) (Auto ) 1.0, Sodium Level 144, Potassium Level 3.3L, Chloride Level 107, Carbon Dioxide Level 28, Anion Gap 9, Blood Urea Nitrogen 13, Creatinine 1.0, Estimat Glomerular Filtration Rate , Glucose Level 95, Hemoglobin A1c 5.8, Uric Acid 3.3 , Calcium Level 9.3, Phosphorus Level 2.9, Magnesium Level 2.0, Iron Level 87, Total Iron Binding Capacity 274, Percent Iron Saturation 32, Unsaturated Iron Binding 187, Ferritin 41, Total Bilirubin 1.1H, Direct Bilirubin 0.2, Gamma Glutamyl Transpeptidase 16, Aspartate Amino Transf (AST/SGOT) 29, Alanine Aminotransferase (ALT/SGPT) 25, Alkaline Phosphatase 65, C-Reactive Protein, Quantitative < 0.4, Pro-B-Type Natriuretic Peptide 793H, Total Protein 7.4, Albumin 3.6, Globulin 3.8, Albumin/Globulin Ratio 0.9L, Triglycerides Level 50, Cholesterol Level 210H, LDL Cholesterol 91, HDL Cholesterol 110H, Cholesterol/ HDL Ratio 1.9L, Vitamin B12 Level 1123H, Folate 24.8 Height (Feet): 5 Height (Inches): 3.00 Weight (Pounds): 113 General Appearance: no apparent distress Objective no change David Herrera MD Feb 11, 2019 14:10
--- NOTE | 2019-02-11 15:03 | Diagnostic Imaging Report ---
Indication: Reason For Exam: SYNCOPE Technique: Patient could not be adequately sedated, and only axial diffusion weighted imaging can be obtained. No other sequences available Comparison: none Findings: No abnormal areas of diffusion restriction demonstrated. Impression: Extremely limited exam with only diffusion weighted imaging sequence available. Normal diffusion imaging indicates no evidence of acute infarct. Other pathology not excludable
--- NOTE | 2019-02-11 15:55 | Cardiac Electrophysiology PN ---
Subjective Subjective [id number] Objective Last 24 Hour Vital Signs Date Time Temp Pulse Resp B/P (MAP) Pulse Ox O2 Delivery O2 Flow Rate FiO2 02/11/19 12:00 97.9 77 20 113/67 (82) 96 02/11/19 09:07 95 151/110 02/11/19 09:00 Room Air 02/11/19 08:00 97.6 95 21 151/110 (124) 100 02/11/19 08:00 59 02/11/19 04:00 63 02/11/19 04:00 97.7 63 18 139/69 (92) 96 02/11/19 01:00 84 18 123/63 (83) 97 02/11/19 00:00 87 02/11/19 00:00 98.0 79 18 173/86 (115) 97 02/10/19 23:42 98.0 79 18 173/86 (115) 97 02/10/19 23:35 173/86 02/10/19 21:00 Room Air 02/10/19 20:00 97.6 81 18 143/78 (99) 98 02/10/19 20:00 83 02/10/19 16:00 97.3 79 17 154/82 (106) 98 02/10/19 16:00 120 Intake and Output 02/10/19 02/11/19 19:00 07:00 Intake Total 240 ml Output Total 3 ml 252 ml Balance 237 ml -252 ml Intake Oral 240 ml Output Urine Total 3 ml 252 ml # Bowel Movements 1 1 Laboratory Tests Test 02/11/19 06:06 White Blood Count 5.0 K/UL (4.8-10.8) Red Blood Count 5.08 M/UL (4.20-5.40) Hemoglobin 13.1 G/DL (12.0-16.0) Hematocrit 41.1 % (37.0-47.0) Mean Corpuscular Volume 81 FL (80-99) Mean Corpuscular Hemoglobin 25.8 PG (27.0-31.0) L Mean Corpuscular Hemoglobin Concent 31.9 G/DL (32.0-36.0) L Red Cell Distribution Width 12.9 % (11.6-14.8) Platelet Count 188 K/UL (150-450) Mean Platelet Volume 6.8 FL (6.5-10.1) Neutrophils (%) (Auto) 53.8 % (45.0-75.0) Lymphocytes (%) (Auto) 36.0 % (20.0-45.0) Monocytes (%) (Auto) 8.0 % (1.0-10.0) Eosinophils (%) (Auto) 1.2 % (0.0-3.0) Basophils (%) (Auto) 1.0 % (0.0-2.0) Sodium Level 144 MMOL/L (136-145) Potassium Level 3.3 MMOL/L (3.5-5.1) L Chloride Level 107 MMOL/L (98-107) Carbon Dioxide Level 28 MMOL/L (21-32) Anion Gap 9 mmol/L (5-15) Blood Urea Nitrogen 13 mg/dL (7-18) Creatinine 1.0 MG/DL (0.55-1.30) Estimat Glomerular Filtration Rate mL/min (>60) Glucose Level 95 MG/DL (74-106) Hemoglobin A1c 5.8 % (4.3-6.0) Uric Acid 3.3 MG/DL (2.6-7.2) Calcium Level 9.3 MG/DL (8.5-10.1) Phosphorus Level 2.9 MG/DL (2.5-4.9) Magnesium Level 2.0 MG/DL (1.8-2.4) Iron Level 87 ug/dL (50-175) Total Iron Binding Capacity 274 ug/dL (250-450) Percent Iron Saturation 32 % (15-50) Unsaturated Iron Binding 187 ug/dL (112-346) Ferritin 41 NG/ML (8-388) Total Bilirubin 1.1 MG/DL (0.2-1.0) H Direct Bilirubin 0.2 MG/DL (0.0-0.3) Gamma Glutamyl Transpeptidase 16 U/L (5-85) Aspartate Amino Transf (AST/SGOT) 29 U/L (15-37) Alanine Aminotransferase (ALT/SGPT) 25 U/L (12-78) Alkaline Phosphatase 65 U/L (46-116) C-Reactive Protein, Quantitative < 0.4 mg/dL (0.00-0.90) Pro-B-Type Natriuretic Peptide 793 pg/mL (0-125) H Total Protein 7.4 G/DL (6.4-8.2) Albumin 3.6 G/DL (3.4-5.0) Globulin 3.8 g/dL Albumin/Globulin Ratio 0.9 (1.0-2.7) L Triglycerides Level 50 MG/DL (30-150) Cholesterol Level 210 MG/DL (< 200) H LDL Cholesterol 91 mg/dL (<100) HDL Cholesterol 110 MG/DL (40-60) H Cholesterol/HDL Ratio 1.9 (3.3-4.4) L Vitamin B12 Level 1123 PG/ML (193-986) H Folate 24.8 NG/ML (8.6-58.9) Microbiology Date/Time Source Procedure Growth Status 02/09/19 18:50 Rectum Received Ivan Fernandez MD Feb 11, 2019 15:55
--- NOTE | 2019-02-11 16:45 | NUR ---
NURSE NOTES: Patient has orthostatic vital signs order, but patient is unable to stand.
--- NOTE | 2019-02-11 18:15 | Consultation ---
DATE OF CONSULTATION: 02/11/2019 CARDIOLOGY CONSULTATION CONSULTING PHYSICIAN: Ivan Fernandez M.D. REFERRING PHYSICIAN: Ngozi Moreira M.D. REASON FOR CONSULTATION: Syncope and hypertension. HISTORY OF PRESENT ILLNESS: The patient is an 83-year-old lady with history of dementia, hypothyroidism, history of CVA, and hypertension, who was sent from [facility] after possible syncopal episodes. The patient was sent in by basic ambulance. On arrival, the patient denies any chest pain or palpitation or shortness of breath. The patient is a very poor historian and has been refusing to eat. The patient was admitted and a Cardiology consultation was obtained for further evaluation and management. PAST MEDICAL HISTORY: As mentioned above. FAMILY HISTORY: Noncontributory. SOCIAL HISTORY: She lives in [place]. Does not smoke or drink alcohol. REVIEW OF SYSTEMS: Negative other than what was mentioned in history of present illness. PHYSICAL EXAMINATION: VITAL SIGNS: Blood pressure 113/67, pulse 77, respirations 20, and temperature 98. HEAD AND NECK: Shows no JVD or carotid bruit. She is very cachectic. LUNGS: Clear. CARDIOVASCULAR: Shows regular S1 and S2 with no gallop. ABDOMEN: Soft. EXTREMITIES: No pitting edema. LABORATORY DATA: Labs show sodium 144, potassium 3.3, BUN of 13, creatinine 1, and glucose of 95. Her white count is 5, hemoglobin 13.1, hematocrit of 41, and platelet count is 188,000. Urinalysis is negative. D-dimer is 0.88. Her MRI of the brain was a very limited study with no evidence of acute infarct. ASSESSMENT AND PLAN: 1. Syncope, etiology is not clear. We will completely rule out myocardial infarction protocol and get an echocardiogram to evaluate for ejection fraction and wall motion abnormality. She has remained in sinus rhythm on telemetry and EKG shows sinus bradycardia at the rate of 58 with left ventricular hypertrophy. 2. Hypertension. The patient is on p.r.n. hydralazine as well as Norvasc 10 mg daily. 3. Hypothyroidism. On Synthroid. 4. Dementia. 5. Hypokalemia. Potassium was replaced. Thank you very much for allowing me to participate in the care of this patient. Please do not hesitate to contact me for any questions regarding my evaluation. Ivan Fernandez M.D. DR: SAMANTHA JOB#: [id number] CC:
--- NOTE | 2019-02-11 19:47 | NUR ---
HAND-OFF: Report given to Teresita/RN, Patient is in stable condition. Endorsed plan of care.
--- NOTE | 2019-02-11 19:47 | NUR ---
NURSE NOTES: Report received from Solomon Han RN. Pt is resting in bed in stable condition. Pt is AOx1, with noted confusion. This is baseline per report. Pt is on room air and breathing is even and unlabored. No acute distress noted. IV site is R FA #22g and is asymptomatic, patent, and intact. Bed is in low and locked position with side rails up x3 and bed alarm on. Bilateral soft wrist restraints noted to be in place - no swelling or skin breakdown noted, peripheral pulses palpated and intact. Pt provided with frequent reorientation but unable to comprehend or follow simple commands. Will continue to monitor patient.
--- NOTE | 2019-02-11 22:45 | NUR ---
NURSE NOTES: Pt removed one hand from restraints and removed IV site. Will attempt to place another.
--- NOTE | 2019-02-11 23:32 | NUR ---
NURSE NOTES: IV replaced in L FA #22g. Site is asymptomatic, patent, and intact.
[2019-02-12] VITALS: BP 151/94
[2019-02-12 04:00] VITALS: BP 135/71
--- NOTE | 2019-02-12 04:15 | Progress Note ---
DATE: 02/11/2019 SUBJECTIVE: The patient is a very poor historian. CT scan was ordered; however, denies pain nausea, vomiting, or diarrhea. PHYSICAL EXAMINATION: VITAL SIGNS: Stable. CHEST: Clear to auscultation. CARDIOVASCULAR: Regular rate and rhythm. ASSESSMENT AND PLAN: Rule out CVA. Rule out syncope. Again, the patient is a very poor historian. Neurology has been consulted to help with the management. The patient is otherwise hemodynamically stable. No . No shortness of breath. Denies cough. Ngozi Moreira M.D. DR: CANDACE JOB#: [id number] CC:
--- NOTE | 2019-02-12 05:15 | Progress Note ---
DATE: 02/11/2019 SUBJECTIVE: The patient is calmer today; however, anxious and agitated, received IV for MRI. The patient was uncooperative and not redirectable. MENTAL STATUS EXAMINATION: The patient is alert, confused, disoriented. Mood is anxious. Affect is constricted, congruent with mood. Thought process is disorganized. Thought content, no suicidal or homicidal ideation. ASSESSMENT: 1. Dementia with behavior disturbance. 2. Encephalopathy. PLAN: We will continue current medication. Provide the patient with reality orientation and supportive therapy. Christiano Fernández M.D. DR: RAFAEL JOB#: [id number] CC:
[2019-02-12] MEDS: Levothyroxine 25mcg tab ORAL SCH (05:59)
--- NOTE | 2019-02-12 06:54 | NUR ---
NURSE NOTES: Received report from Teresita/RN, Patient is asleep lying semi-zhu's; resting comfortably, on room air, No sign of distress/SOB noted. IV on left forearm, patent, no bleeding or infiltration noted. Bed in low position and locked, call light within reach. Will continue plan of care.
--- NOTE | 2019-02-12 07:24 | NUR ---
HAND-OFF: Report given to Solomon Han RN. Pt is resting in bed in stable condition. No acute distress noted. Endorsed plan of care.
[2019-02-12 08:00] VITALS: BP 166/93
[2019-02-12] MEDS: Aspirin Baby 81mg ORAL SCH (09:52)
[2019-02-12] MEDS: Docusate 100mg cap ORAL SCH ×3 (09:52→18:03)
[2019-02-12] MEDS: Citalopram Hydrobromide 10mg Tab ORAL SCH (09:52)
[2019-02-12 12:00] VITALS: BP 121/80
--- NOTE | 2019-02-12 12:22 | CDS Physician Query ---
Clarification is required for compliance, coding accuracy, and to reflect severity of illness for this patient Dear Dr. Ngozi Moreira Date: 02/12/2019 Park Attendant/CDS Name: Marleny Hook 02/09 neuro note: Dementia with Syncope, Possible delirium with non focal exam. 02/12 psych note: ASSESSMENT: 1. Dementia with behavior disturbance. 2. Encephalopathy. 02/10 labs: Na 146, Cl 110, BUN 19 MRI: Normal diffusion imaging indicates no evidence of acute infarct Please indicate the cause of syncope/AMS below: [] TIA [] Dementia with delirium [] Metabolic Encephalopathy [] Toxic Encephalopathy [] Toxic - Metabolic Encephalopathy [] Encephalopathy, Other [] Other: [] Not Applicable Present on Admission: [] Yes [] No [] Clinically Undetermined Physician signature Date Please also document in your Progress Notes and/or Discharge Summary and indicate if the condition was present on admission. MTDD
--- NOTE | 2019-02-12 15:28 | Cardiac Electrophysiology PN ---
Assessment/Plan Assessment/Plan 1. Syncope, etiology is not clear. Ruled out for myocardial infarction. Echocardiogram EF 60%. She has remained in sinus rhythm on telemetry and EKG shows sinus bradycardia at the rate of 58 with left ventricular hypertrophy. 2. Hypertension. The patient is on p.r.n. hydralazine as well as Norvasc 10 mg daily. 3. Hypothyroidism. On Synthroid. 4. Dementia. 5. Hypokalemia. Potassium was replaced. Subjective Subjective Confused in restraints in NAD in SR Objective Last 24 Hour Vital Signs Date Time Temp Pulse Resp B/P (MAP) Pulse Ox O2 Delivery O2 Flow Rate FiO2 02/12/19 12:00 98.1 83 20 121/80 (94) 95 02/12/19 12:00 68 02/12/19 09:52 68 166/93 02/12/19 09:00 Room Air 02/12/19 08:00 92 02/12/19 08:00 97.5 68 20 166/93 (117) 100 02/12/19 04:00 64 02/12/19 04:00 97.1 70 18 135/71 (92) 98 02/12/19 00:00 97.8 83 18 151/94 (113) 100 02/12/19 00:00 89 02/11/19 21:00 Room Air 02/11/19 20:00 97.9 78 20 135/73 (93) 100 02/11/19 20:00 77 02/11/19 16:05 91 02/11/19 16:00 79 02/11/19 16:00 98 02/11/19 16:00 97.9 90 21 113/76 (88) 99 Intake and Output 02/11/19 02/12/19 18:59 06:59 Output Total 1 ml Balance -1 ml Output Urine Total 1 ml # Voids 1 2 Laboratory Tests Test 02/12/19 05:35 Troponin I 0.002 ng/mL (0.000-0.056) Microbiology Date/Time Source Procedure Growth Status 02/09/19 18:50 Nasal Nares MRSA Culture - Final Staphylococcus Aureus - Mrsa Complete 02/09/19 19:00 Rectum - Final NO CARBAPENEM-RESISTANT ENTEROBACTERI... Complete 02/09/19 18:50 Rectum VRE Culture - Final NO VANCOMYCIN RESISTANT ENTEROCOCCUS ... Complete Objective HEAD AND NECK: No JVD or carotid bruit. She is very cachectic. LUNGS: Clear. CARDIOVASCULAR: Shows regular S1 and S2 with no gallop. ABDOMEN: Soft. EXTREMITIES: No pitting edema. Ivan Fernandez MD Feb 12, 2019 15:28
--- NOTE | 2019-02-12 16:29 | Nephrology Progress Note ---
Assessment/Plan Problem List: (1) HTN (hypertension) (2) Syncope (3) Hypothyroid (4) Electrolyte abnormality Assessment HTN- Dementia- Syncope- Plan K supplement PO BP control : Norvasc and PRN Hydralazine Gastric support synthroid per orders Subjective ROS Limited/Unobtainable: No Constitutional: Reports: malaise, weakness Objective Objective Last 24 Hour Vital Signs Date Time Temp Pulse Resp B/P (MAP) Pulse Ox O2 Delivery O2 Flow Rate FiO2 02/12/19 12:00 98.1 83 20 121/80 (94) 95 02/12/19 12:00 68 02/12/19 09:52 68 166/93 02/12/19 09:00 Room Air 02/12/19 08:00 92 02/12/19 08:00 97.5 68 20 166/93 (117) 100 02/12/19 04:00 64 02/12/19 04:00 97.1 70 18 135/71 (92) 98 02/12/19 00:00 97.8 83 18 151/94 (113) 100 02/12/19 00:00 89 02/11/19 21:00 Room Air 02/11/19 20:00 97.9 78 20 135/73 (93) 100 02/11/19 20:00 77 Intake and Output 02/11/19 02/12/19 18:59 06:59 Output Total 1 ml Balance -1 ml Output Urine Total 1 ml # Voids 1 2 Laboratory Tests 02/12/19 05:35: Troponin I 0.002 Height (Feet): 5 Height (Inches): 3.00 Weight (Pounds): 113 Objective no change David Herrera MD Feb 12, 2019 16:29
--- NOTE | 2019-02-12 19:17 | NUR ---
HAND-OFF: Report given to Teresita/MYAH. Patient is in stable condition. No acute distress noted. Endorsed plan of care.
--- NOTE | 2019-02-12 19:30 | NUR ---
NURSE NOTES: Report received from Solomon Han RN. Pt is resting in bed in stable condition. Pt is AOx1 with noted confusion. Pt is on room air and breathing is even and unlabored. No acute distress noted. IV site is L FA #22g and is asymptomatic, patent, and intact. Bed is in lowest position with brake engaged, side rails up x3, and bed alarm on. Call light and side table placed within reach. Bilateral soft wrist restraints noted to be in place - pt impulsive, unsteady, and high fall risk. No swelling, edema, or skin breakdown noted at restraint sites. Passive range of motion encouraged. Bilateral peripheral pulses palpated and present. Will continue to monitor.
[2019-02-12 20:00] VITALS: BP 125/84
--- NOTE | 2019-02-12 21:43 | General Progress Note ---
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 - Blindness, one eye, unspecified eye SNOMED: 783266988 (4) HTN (hypertension) ICD Codes: I10 - Essential (primary) hypertension SNOMED: 84312662 (5) Electrolyte abnormality ICD Codes: E87.8 - Other disorders of electrolyte and fluid balance, not elsewhere classified SNOMED: 622998463 Status: stable Assessment/Plan: afebrile nad hypothyroid s/o syncope vitals stable Subjective ROS Limited/Unobtainable: Yes Allergies: Coded Allergies: No Known Allergies (Unverified , 02/09/19) Objective Last 24 Hour Vital Signs Date Time Temp Pulse Resp B/P (MAP) Pulse Ox O2 Delivery O2 Flow Rate FiO2 02/12/19 20:00 98.4 83 18 125/84 (98) 98 02/12/19 16:00 77 02/12/19 12:00 98.1 83 20 121/80 (94) 95 02/12/19 12:00 68 02/12/19 09:52 68 166/93 02/12/19 09:00 Room Air 02/12/19 08:00 92 02/12/19 08:00 97.5 68 20 166/93 (117) 100 02/12/19 04:00 64 02/12/19 04:00 97.1 70 18 135/71 (92) 98 02/12/19 00:00 97.8 83 18 151/94 (113) 100 02/12/19 00:00 89 Intake and Output 02/11/19 02/12/19 19:00 07:00 # Voids 1 2 Laboratory Tests 02/12/19 05:35: Troponin I 0.002 Height (Feet): 5 Height (Inches): 3.00 Weight (Pounds): 113 Cardiovascular: normal rate Respiratory/Chest: lungs clear Abdomen: soft Ngozi Moreira MD Feb 12, 2019 21:43
[2019-02-13] VITALS: BP 130/93
--- NOTE | 2019-02-13 | Progress Note ---
SUBJECTIVE: The patient is a having waxing and waning consciousness, easily agitated, need administration of psychotropic medication. MENTAL STATUS EXAMINATION: The patient is alert, disoriented and confused. Mood is agitated. Affect is flat. Thought process, there is a paucity of thought content. Thought content, no suicidal or homicidal ideations. ASSESSMENT: 1. Encephalopathy. 2. Dementia with behavior disturbance. PLAN: 1. We will continue current medications. 2. Provide the patient with reality orientation and supportive therapy. Christiano Fernández M.D. DR: Estefany JOB#: [id number] CC:
[2019-02-13 04:00] VITALS: BP 130/89
[2019-02-13] MEDS: Levothyroxine 25mcg tab ORAL SCH (06:11)
[2019-02-13 06:45] LABS: BASOPHILS % (AUTO) 1.2 % (0.0-2.0); EOSINOPHILS % (AUTO) 1.1 % (0.0-3.0); HEMATOCRIT 41.8 % (37.0-47.0); HEMOGLOBIN 13.2 G/DL (12.0-16.0); LYMPHOCYTES % (AUTO) 27.6 % (20.0-45.0); MEAN CORPUSCULAR VOLUME 82 FL (80-99); MONOCYTES % (AUTO) 8.5 % (1.0-10.0); NEUTROPHILS % (AUTO) 61.7 % (45.0-75.0); PLATELET COUNT 196 K/UL (150-450); RED BLOOD COUNT 5.11 M/UL (4.20-5.40); WHITE BLOOD COUNT 5.7 K/UL (4.8-10.8)
[2019-02-13 07:27] LABS: ALANINE AMINOTRANSFERASE 25 U/L (12-78); ALBUMIN 3.3 G/DL (3.4-5.0); ALBUMIN/GLOBULIN RATIO 0.8 (1.0-2.7); ALKALINE PHOSPHATASE 65 U/L (46-116); ANION GAP 15 mmol/L (5-15); ASPARTATE AMINO TRANSFERASE 27 U/L (15-37); BILIRUBIN,TOTAL 1.2 MG/DL (0.2-1.0); BLOOD UREA NITROGEN 24 mg/dL (7-18); CALCIUM 9.5 MG/DL (8.5-10.1); CARBON DIOXIDE 25 MMOL/L (21-32); CHLORIDE 111 MMOL/L (98-107); CREATININE 1.3 MG/DL (0.55-1.30); PHOSPHORUS 3.6 MG/DL (2.5-4.9); POTASSIUM 4.8 MMOL/L (3.5-5.1); SODIUM 151 MMOL/L (136-145)
--- NOTE | 2019-02-13 07:27 | NUR ---
HAND-OFF: Report given to Citlalli Zambrano RN. Pt is resting in bed in stable condition. No acute distress noted. Endorsed plan of care.
[2019-02-13 07:30] LABS: BILIRUBIN,DIRECT 0.2 MG/DL (0.0-0.3)
--- NOTE | 2019-02-13 07:30 | NUR ---
NURSE NOTES: Report received from Teresita GLASGOW. Patient is observed in bed, asleep, but arousable by voice. Respiratory even and unlabored. IV site is asymptomatic, patent, and intact. Bed is in lowest position with side rails up x2 and brakes are engaged. Bed alarm is on.
[2019-02-13 08:00] VITALS: BP 157/72
--- NOTE | 2019-02-13 08:22 | NUR ---
NURSE NOTES: Spoke to Dr. Moreira regarding patient's potassium level of 4.8 this AM and scheduled kdur 20meq, per MD hold medication and discharge patient to [facility] and resume home meds. Made charge nurse aware.
[2019-02-13] MEDS: Citalopram Hydrobromide 10mg Tab ORAL SCH (08:57)
[2019-02-13] MEDS: Docusate 100mg cap ORAL SCH ×2 (08:58→12:22)
[2019-02-13] MEDS: Aspirin Baby 81mg ORAL SCH (08:58)
--- NOTE | 2019-02-13 09:15 | NUR ---
DISCHARGE PLANNING DISCHARGE ORDER NOTED FAXED CLINCALS TO [facility] T: [phone] F: [phone] *AWAIT ACCEPTANCE AND ASSIGNED ROOM NUMBER
--- NOTE | 2019-02-13 09:15 | Cardiac Electrophysiology PN ---
Assessment/Plan Assessment/Plan 1. Syncope, etiology is not clear. Ruled out for myocardial infarction. EF 60%. Remained in sinus rhythm on telemetry . EKG shows sinus bradycardia at the rate of 58 with left ventricular hypertrophy. 2. Hypertension. On p.r.n. hydralazine as well as Norvasc 10 mg daily. 3. Hypothyroidism. On Synthroid. 4. Dementia. 5. Hypokalemia. Replaced. DW RN Subjective Subjective Confused in restraints in NAD in SR. DC planning today to [facility] pending Objective Last 24 Hour Vital Signs Date Time Temp Pulse Resp B/P (MAP) Pulse Ox O2 Delivery O2 Flow Rate FiO2 02/13/19 08:58 86 157/72 02/13/19 08:00 97.7 85 18 157/72 (100) 100 02/13/19 07:50 Room Air 02/13/19 04:00 97.3 78 18 130/89 (103) 100 02/13/19 04:00 70 02/13/19 00:00 75 02/13/19 00:00 98.1 85 18 130/93 (105) 98 02/12/19 21:00 Room Air 02/12/19 20:00 98.4 83 18 125/84 (98) 98 02/12/19 20:00 86 02/12/19 16:00 77 02/12/19 12:00 98.1 83 20 121/80 (94) 95 02/12/19 12:00 68 02/12/19 09:52 68 166/93 Intake and Output 02/12/19 02/13/19 19:00 07:00 Intake Total 240 ml 120 ml Balance 240 ml 120 ml Intake Oral 240 ml 120 ml # Voids 2 Laboratory Tests Test 02/13/19 05:00 White Blood Count 5.7 K/UL (4.8-10.8) Red Blood Count 5.11 M/UL (4.20-5.40) Hemoglobin 13.2 G/DL (12.0-16.0) Hematocrit 41.8 % (37.0-47.0) Mean Corpuscular Volume 82 FL (80-99) Mean Corpuscular Hemoglobin 25.8 PG (27.0-31.0) L Mean Corpuscular Hemoglobin Concent 31.6 G/DL (32.0-36.0) L Red Cell Distribution Width 13.0 % (11.6-14.8) Platelet Count 196 K/UL (150-450) Mean Platelet Volume 6.7 FL (6.5-10.1) Neutrophils (%) (Auto) 61.7 % (45.0-75.0) Lymphocytes (%) (Auto) 27.6 % (20.0-45.0) Monocytes (%) (Auto) 8.5 % (1.0-10.0) Eosinophils (%) (Auto) 1.1 % (0.0-3.0) Basophils (%) (Auto) 1.2 % (0.0-2.0) Sodium Level 151 MMOL/L (136-145) H Potassium Level 4.8 MMOL/L (3.5-5.1) Chloride Level 111 MMOL/L (98-107) H Carbon Dioxide Level 25 MMOL/L (21-32) Anion Gap 15 mmol/L (5-15) Blood Urea Nitrogen 24 mg/dL (7-18) H Creatinine 1.3 MG/DL (0.55-1.30) Estimat Glomerular Filtration Rate mL/min (>60) Glucose Level 100 MG/DL (74-106) Calcium Level 9.5 MG/DL (8.5-10.1) Phosphorus Level 3.6 MG/DL (2.5-4.9) Magnesium Level 2.3 MG/DL (1.8-2.4) Total Bilirubin 1.2 MG/DL (0.2-1.0) H Direct Bilirubin 0.2 MG/DL (0.0-0.3) Aspartate Amino Transf (AST/SGOT) 27 U/L (15-37) Alanine Aminotransferase (ALT/SGPT) 25 U/L (12-78) Alkaline Phosphatase 65 U/L (46-116) Total Protein 7.3 G/DL (6.4-8.2) Albumin 3.3 G/DL (3.4-5.0) L Globulin 4.0 g/dL Albumin/Globulin Ratio 0.8 (1.0-2.7) L Objective HEAD AND NECK: No JVD or carotid bruit and very cachectic. LUNGS: Clear. CARDIOVASCULAR: Regular S1 and S2 with no gallop. ABDOMEN: Soft. EXTREMITIES: No pitting edema. Ivan Fernandez MD Feb 13, 2019 09:15
--- NOTE | 2019-02-13 09:26 | NUR ---
ST NOTE: CURRENT STATUS AND D/C SUMMARY: FOLLOWED UP PT'S CONDITIONS. PT TOLERATED CURRENT DIET WITHOUT OVERT S/S OF ASPIRATION. PT PARTIALLY MET PO INTAKE GOALS. NURSING STAFF MET ASPIRATION PRECAUTIONS GOALS. DISCUSSED WITH RN RE: PT'S CONDITIONS. PER RN, PT WILL BE D/C TODAY. NO FURTHER SKILLED ST SERVICE IS REQUIRED AT THIS TIME. D/C FROM SKILLED ST SERVICE.
--- NOTE | 2019-02-13 10:03 | NUR ---
NURSE NOTES: Patient is showing an increase in agitation and combativeness, attempted to re-orient patient, however, unsuccessful. Patient removed her IV and started saying profanity words. Notified Dr. Moreira, awaiting call back.
--- NOTE | 2019-02-13 10:05 | NUR ---
DISCHARGE PLANNED PATIENT IS RETURNING TO [facility] ROOM ~ [address] SKILLED T: [phone] FOR NURSE TO NURSE REPORT [facility] HAS BEEN ARRANGED FOR 1230 PICK CERTIFIED MEETING PROFESSIONAL SPOKE WITH GRANDDAUGHTER PRASHANT WHO IS IN AGREEMENT WITH DISCHARGE PLAN
--- NOTE | 2019-02-13 11:26 | NUR ---
NURSE NOTES: Primary MD is aware of no IV access and Dr. Herrera's order of 500cc bolus of D5W, per MD, it is ok if patient has no IV access. Called [facility] and gave report to Iram GLASGOW and notified of patient's arrival.
--- NOTE | 2019-02-13 11:57 | NUR ---
NURSE NOTES: Dr. Herrera is at bedside. Notified MD regarding patient's IV access and inability to infuse D5w 500cc, per Sharon, it is ok. Will continue to monitor. Awaiting poultry picking machine tender time.
[2019-02-13 12:00] VITALS: BP 150/84
--- NOTE | 2019-02-13 14:18 | NUR ---
NURSE NOTES: Hydralazine 25mg is given to the patient due to high blood pressure of 170/85. Unable to scan barcode.
--- NOTE | 2019-02-13 14:32 | NUR ---
NURSE NOTES: [facility] picked up the patient. Patient is transferred from [facility] to the [facility] without any incident. Blood pressure as follows: BP: 156/85, HR: 86, RRL 16, O2: 99% RA. No s/s of discomfort. Belongings list checked and signed and given to the ambulance personnel. ekg monitor tech removed and returned to the surveillance system monitor. Stable for discharge.
--- NOTE | 2019-02-13 15:18 | Nephrology Progress Note ---
Assessment/Plan Problem List: (1) HTN (hypertension) (2) Syncope (3) Hypothyroid (4) Electrolyte abnormality Assessment HTN- Dementia- Syncope- Plan 500 cc D5 K supplement PO BP control : Norvasc and PRN Hydralazine Gastric support synthroid per orders Subjective ROS Limited/Unobtainable: Yes Interval Events/Complaints seen at 10.30 am- late note entery Constitutional: Reports: other - uncooporative Objective Objective Last 24 Hour Vital Signs Date Time Temp Pulse Resp B/P (MAP) Pulse Ox O2 Delivery O2 Flow Rate FiO2 02/13/19 12:01 74 02/13/19 12:00 97.9 75 16 150/84 (106) 100 02/13/19 09:53 64 02/13/19 08:58 86 157/72 02/13/19 08:00 97.7 85 18 157/72 (100) 100 02/13/19 07:50 Room Air 02/13/19 04:00 97.3 78 18 130/89 (103) 100 02/13/19 04:00 70 02/13/19 00:00 75 02/13/19 00:00 98.1 85 18 130/93 (105) 98 02/12/19 21:00 Room Air 02/12/19 20:00 98.4 83 18 125/84 (98) 98 02/12/19 20:00 86 02/12/19 16:00 77 Intake and Output 02/12/19 02/13/19 18:59 06:59 Intake Total 240 ml 120 ml Balance 240 ml 120 ml Intake Oral 240 ml 120 ml # Voids 2 Laboratory Tests 02/13/19 05:00: White Blood Count 5.7, Red Blood Count 5.11, Hemoglobin 13.2, Hematocrit 41.8, Mean Corpuscular Volume 82, Mean Corpuscular Hemoglobin 25.8L, Mean Corpuscular Hemoglobin Concent 31.6L, Red Cell Distribution Width 13.0, Platelet Count 196, Mean Platelet Volume 6.7, Neutrophils (%) (Auto) 61.7, Lymphocytes (%) (Auto) 27.6, Monocytes (%) (Auto) 8.5, Eosinophils (%) (Auto) 1.1, Basophils (%) (Auto ) 1.2, Sodium Level 151H, Potassium Level 4.8, Chloride Level 111H, Carbon Dioxide Level 25, Anion Gap 15, Blood Urea Nitrogen 24H, Creatinine 1.3, Estimat Glomerular Filtration Rate , Glucose Level 100, Calcium Level 9.5, Phosphorus Level 3.6, Magnesium Level 2.3, Total Bilirubin 1.2H, Direct Bilirubin 0.2, Aspartate Amino Transf (AST/SGOT) 27, Alanine Aminotransferase ( ALT/SGPT) 25, Alkaline Phosphatase 65, Total Protein 7.3, Albumin 3.3L, Globulin 4.0, Albumin/Globulin Ratio 0.8L Height (Feet): 5 Height (Inches): 3.00 Weight (Pounds): 113 General Appearance: confused, agitated - at times Cardiovascular: normal rate Respiratory/Chest: decreased breath sounds Abdomen: soft Objective no change David Herrera MD Feb 13, 2019 15:18
--- NOTE | 2019-02-14 00:16 | Psych Consult Progress Note ---
Psychiatry Progress Note Psychiatry Progress Note Neurological/Psychiatric: Reports: anxiety, depressed, emotional problems Allergies: Coded Allergies: No Known Allergies (Unverified , 02/09/19) Objective Data Height (Feet): 5 Height (Inches): 3.00 Weight (Pounds): 113 General Appearance: alert, confused, agitated Behavior Mannerisms: poor eye contact Mental Status Exam - Affect: blunted Mental Status Exam - Mood: no abnormalities, irritable Mental Status Exam - Thought P: loose association Mental Status Exam - Cognition: no abnormalities Assessment/Plan Status: stable Assessment/Plan: 1. Encephalopathy. 2. Dementia with behavior disturbance. PLAN: 1. We will continue current medications. 2. Provide the patient with reality orientation and supportive therapy. Christiano Fernández MD Feb 14, 2019 00:16
--- NOTE | 2019-02-16 12:16 | Discharge Summary ---
Discharge Summary Discharge Summary _ DATE OF ADMISSION: 02/09/2019 DATE OF DISCHARGE: 02/13/2019 DISCHARGED BY: Dr Moreira REASON FOR ADMISSION: 83 years old female, resident of alf facility, with past medical history of CVA, hypertension, osteoporosis, Alzheimer dementia, was sent for evaluation for syncopal episode. Patient apparently had a syncopal episode and was sent to emergency room for further evaluation. History was severely limited due to the patient condition. Vital signs were stable. Laboratory work-up revealed no leukocytosis, stable hemoglobin and hematocrit. BUN 19 , creatinine 1.5. Glucose 166. Pro BNP 790. Troponin negative. EKG revealed sinus rhythm, no acute ischemic changes Patient subsequently admitted to telemetry floor for further management. CONSULTANTS: fourth grade teacher Dr. Lopes neurologist Dr. Farmer physical education specialist Dr. Herrera psychiatrist [facility]: Patient admitted to telemetry floor. Auto Accessories Installer followed. Echocardiogram revealed preserved ejection fraction of 60% with mild left ventricular hypertrophy. No evidence of wall motion abnormality. Right ventricular systolic pressure of 29. Serial troponin were negative. EKG revealed no acute ischemic changes. Patient was ruled out for acute myocardial infarction. Patient remained in sinus rhythm on telemetry, no evidence of arrhythmia. Blood pressure was managed with calcium channel olive. In addition, hydralazine was on board to use as needed. Neurologist followed. Per neurologist patient had dementia with syncope, possible delirium and nonfocal exam. MRI of the brain demonstrated no abnormal area of diffusion restriction. Blood pressure remained stable. Neuro-checks were done every 4 hour. Fall precautions maintained. Patient was working with physical therapist . No orthostatic changes in vital signs. Telemetry consistently showed sinus rhythm, no evidence of arrhythmia. Cause of syncope was unclear at this time per fourth grade teacher. Renal parameters and electrolytes were closely monitored. Dry Pan Feeder followed. Electrolytes corrected as needed. Nephrotoxins were avoided. Gastric support provided. Swallow evaluation was done. Diet texture was changed as per speech therapist recommendation. Diet provided with one-to-one feeding and aspiration precaution. Psychiatrist seen and evaluated patient. Psychiatrist optimized psychiatric medication regimen. Reality orientation and supportive therapy provided. Patient clinically stabilized and was ready for transfer back to alf facility for continuation of care. FINAL DIAGNOSES: Dementia with syncope, possible delirium and behavioral changes. Hypertension Hypothyroidism Electrolyte abnormalities Blind left eye DISCHARGE MEDICATIONS: See Medication Reconciliation list. DISCHARGE INSTRUCTIONS: Patient was discharged to the alf facility. Follow up with medical doctor at the facility. I have been assigned to dictate discharge summary for this account. I was not involved in the patient's management. Martita Houston NP Feb 16, 2019 12:16
== END 2019-02-13 14:30 | DRG 57 ==
LOC: EDBD 15:36 → EMR 16:30 → 2E 17:22 → EDBEDREQ 20:48 → 2E 23:02
DX: G30.9 Alzheimer's disease, unspecified (principal); G93.40 Encephalopathy, unspecified; F05 Delirium due to known physiological condition; F02.81 Dementia in other diseases classified elsewhere, unspecified severity, with behavioral disturbance; R55 Syncope and collapse; E03.9 Hypothyroidism, unspecified; F09 Unspecified mental disorder due to known physiological condition; R45.1 Restlessness and agitation; Z86.73 Personal history of transient ischemic attack (TIA), and cerebral infarction without residual deficits; I10 Essential (primary) hypertension; H54.62 Unqualified visual loss, left eye, normal vision right eye; F41.9 Anxiety disorder, unspecified; E87.6 Hypokalemia
CPT/HCPCS: 36415; 70551; 80053; 80061; 81001; 82248; 82607; 82728; 82746; 82977; 83036; 83540; 83550; 83690; 83735; 83880; 84100; 84443; 84484; 84550; 85025; 85379; 86140; 87081; 93005; 93306; 99285; J8499

== ENCOUNTER 2020-04-14 14:24 | Inpatient (IN) | payer MEDICARE, MEDICAID ==
[~2020-04-14] VITALS: Ht 152.4 cm; Wt 49.4 kg
[~2020-04-14 14:24] MED LIST: ACETAMINOPHEN325 M1 ORAL; ARICEPT10 MG ORAL; ASPIRIN81 MG ORAL; CAL MAG ZINC +1 EACH PO; COLACE100 MG ORAL; CRANBERRY450 M4 PO; DULCOLAX10 MG RC; MULTIVITAMINS1 EAC8 ORAL; NAMENDA10 MG ORAL; NORVASC10 MG ORAL; TRAMADOL HCL50 MG ORAL
[2020-04-14 14:29] VITALS: BP 127/68
--- NOTE | 2020-04-14 14:29 | NUR ---
ED Nurse Note: Pt LADI BRYANT from [facility] c/o left tibia fracture. Per EMS, unk cause whether a fall occured or how the injury obtained. Denies pain at this time. AAOx1, verbally responsive but confused. No SOB, on room air. ERMD at bedside.
--- NOTE | 2020-04-14 14:40 | Emergency Room Report ---
History of Present Illness General Chief Complaint: General Complaint Source: Patient Present Illness HPI Disclaimer: Please note that this report is being documented using [employer] technology. This can lead to erroneous entry secondary to incorrect interpretation by the dictating instrument. HPI: 82-year-old female presents for evaluation of left ankle fracture. She is alert and oriented to self only and cannot provide any history. She arrives from nursing facility. Unknown whether or not a fall occurred or how this injury was obtained. Review of medical record shows history of CVA, hypertension , osteoporosis, Alzheimer's dementia. Unknown medications the patient is taking. No accompanying list was brought from nursing facility. Does not appear to be in pain. PMH: CVA, Alzheimer's dementia, osteoporosis, hypertension PSH: Unable to obtain Allergies: Unable to obtain Social Hx: Able to obtain Allergies: Coded Allergies: No Known Allergies (Unverified , 02/09/19) COVID-19 Screening Contact w/high risk pt: Yes Experienced COVID-19 symptoms?: No COVID-19 Testing performed FLOOR PERSON: No Patient History Last Menstrual Period: na Nursing Documentation-PMH Past Medical History: No History, Except For Hx Cardiac Problems: Yes Hx Hypertension: Yes Hx Neurological Problems: Yes Hx Cerebrovascular Accident: Yes Hx Dementia: Yes Hx Syncope: Yes Hx Weakness: Yes Review of Systems All Other Systems: limited - Unable to obtain from patient due to dementia Physical Exam Vital Signs Date Time Temp Pulse Resp B/P (MAP) Pulse Ox O2 Delivery O2 Flow Rate FiO2 04/14/20 14:25 98.2 82 16 127/68 (87) 95 Room Air General: Awake, mumbling to herself, oriented to self only HEENT: NC/AT. EOMI. Cardiovascular: RRR. S1 and S2 normal. No murmur appreciated Resp: Normal work of breathing. No cough, wheezing or crackles appreciated Abdomen: Abdomen is soft, nondistended. Nontender Skin: Intact. No abrasions, laceration or rash over the exposed skin MSK: Normal tone and bulk. Moving all extremities. No obvious deformity. There is tenderness palpation over the medial malleolus over the anterior posterior aspect without significant edema. Able to passively flex and extend the ankle. No apparent tenderness in the remainder of the lower extremity, the knee or in the foot. Neuro: Awake oriented self only, mumbling to herself incoherently Procedures Splinting Splinting : Consent: Verbal Hand-Made Type: plaster Splint: poserior short Pre-Proc Neuro Vasc Exam: normal Post-Proc Neuro Vasc Exam: normal Patient Tolerated: Well Complications: None Medical Decision Making Diagnostic Impression: Primary Impression: Fracture of distal end of tibia ER Course 84-year-old female sent in for evaluation of distal tibia fracture. Unknown mechanism of injury. Copies of x-ray reports were provided but unable to obtain the images. Will repeat x-rays, send preop labs for possible surgical fixation. 1630: Labs have returned within normal limits. X-rays confirmed a nondisplaced medial malleolus fracture. This was splinted. Dr. Remy of orthopedic surgery was consulted. Her PMD, Dr. Ramsay will admit the patient. She is in stable condition. Laboratory Tests Test 04/14/20 14:55 White Blood Count 4.6 K/UL (4.8-10.8) L Red Blood Count 4.21 M/UL (4.20-5.40) Hemoglobin 10.9 G/DL (12.0-16.0) L Hematocrit 35.1 % (37.0-47.0) L Mean Corpuscular Volume 83 FL (80-99) Mean Corpuscular Hemoglobin 26.0 PG (27.0-31.0) L Mean Corpuscular Hemoglobin Concent 31.2 G/DL (32.0-36.0) L Red Cell Distribution Width 13.8 % (11.6-14.8) Platelet Count 148 K/UL (150-450) L Mean Platelet Volume 8.0 FL (6.5-10.1) Neutrophils (%) (Auto) 45.1 % (45.0-75.0) Lymphocytes (%) (Auto) 38.6 % (20.0-45.0) Monocytes (%) (Auto) 11.8 % (1.0-10.0) H Eosinophils (%) (Auto) 2.4 % (0.0-3.0) Basophils (%) (Auto) 2.2 % (0.0-2.0) H Prothrombin Time 10.7 SEC (9.30-11.50) Prothrombin Time INR 1.0 (0.9-1.1) Activated Partial Thromboplast Time 25 SEC (23-33) Sodium Level 142 MMOL/L (136-145) Potassium Level 4.9 MMOL/L (3.5-5.1) Chloride Level 107 MMOL/L (98-107) Carbon Dioxide Level 28 MMOL/L (21-32) Anion Gap 7 mmol/L (5-15) Blood Urea Nitrogen 29 mg/dL (7-18) H Creatinine 1.3 MG/DL (0.55-1.30) Estimated Glomerular Filtration Rate 47.3 mL/min (>60) Glucose Level 100 MG/DL (74-106) Calcium Level 8.4 MG/DL (8.5-10.1) L Total Bilirubin 0.3 MG/DL (0.2-1.0) Aspartate Amino Transferase (AST) 10 U/L (15-37) L Alanine Aminotransferase (ALT) 13 U/L (12-78) Alkaline Phosphatase 59 U/L (46-116) Total Protein 6.4 G/DL (6.4-8.2) Albumin 2.8 G/DL (3.4-5.0) L Globulin 3.6 g/dL Albumin/Globulin Ratio 0.8 (1.0-2.7) L Microbiology Date/Time Source Procedure Growth Status 04/14/20 14:55 Nasopharynx SARS-CoV-2 RdRp Gene Assay - Final Complete EKG Diagnostic Results EKG Time: 14:58 Rate: normal Rhythm: NSR ST Segments: no acute changes Other Impression Sinus rhythm, normal axis, normal intervals, nonspecific T wave changes Rhythm Strip Diag. Results Rhythm Strip Time: 14:58 EP Interpretation: yes Rate: 80s Rhythm: NSR, no PVC's, no ectopy Other X-Ray Diagnostic Results Other X-Ray Diagnostic Results #1: X-Ray ordered: Left ankle # of Views/Limited Vs Complete: Complete Indication: Pain EP Interpretation: Yes Interpretation: no dislocation, no soft tissue swelling, other - Medial malleolus fracture, nondisplaced Impression: Other - Medial malleolus fracture nondisplaced Electronically Signed by: Electronically signed by Dr. Calvin Campuzano Other X-Ray Diagnostic Results #2: X-Ray ordered: Left tib-fib # of Views/Limited Vs Complete: Complete Indication: Pain EP Interpretation: Yes Interpretation: other - Medial malleolus fracture nondisplaced Impression: Other - Medial malleolus fracture nondisplaced. Electronically Signed by: Signature Last Vital Signs Date Time Temp Pulse Resp B/P (MAP) Pulse Ox O2 Delivery O2 Flow Rate FiO2 04/14/20 14:25 98.2 82 16 127/68 (87) 95 Room Air Disposition: ADMITTED INPATIENT Condition: Stable Calvin Campuzano MD Apr 14, 2020 14:40
--- NOTE | 2020-04-14 14:55 | NUR ---
ED Nurse Note: IV line established. Blood specimen collected and sent to lab.
--- NOTE | 2020-04-14 15:12 | NUR ---
ED Nurse Note: Xray at bedside.
[2020-04-14 15:26] LABS: ANION GAP 7 mmol/L (5-15); BLOOD UREA NITROGEN 29 mg/dL (7-18); CALCIUM 8.4 MG/DL (8.5-10.1); CARBON DIOXIDE 28 MMOL/L (21-32); CHLORIDE 107 MMOL/L (98-107); CREATININE 1.3 MG/DL (0.55-1.30); POTASSIUM 4.9 MMOL/L (3.5-5.1); SODIUM 142 MMOL/L (136-145)
[2020-04-14 15:29] LABS: BASOPHILS % (AUTO) 2.2 % (0.0-2.0); EOSINOPHILS % (AUTO) 2.4 % (0.0-3.0); HEMATOCRIT 35.1 % (37.0-47.0); HEMOGLOBIN 10.9 G/DL (12.0-16.0); LYMPHOCYTES % (AUTO) 38.6 % (20.0-45.0); MEAN CORPUSCULAR VOLUME 83 FL (80-99); MONOCYTES % (AUTO) 11.8 % (1.0-10.0); NEUTROPHILS % (AUTO) 45.1 % (45.0-75.0); PLATELET COUNT 148 K/UL (150-450); RED BLOOD COUNT 4.21 M/UL (4.20-5.40); RED CELL DISTRIBUTION WIDTH 13.8 % (11.6-14.8); WHITE BLOOD COUNT 4.6 K/UL (4.8-10.8)
[2020-04-14 15:31] LABS: ALBUMIN 2.8 G/DL (3.4-5.0); ALBUMIN/GLOBULIN RATIO 0.8 (1.0-2.7); ALKALINE PHOSPHATASE 59 U/L (46-116); ASPARTATE AMINO TRANSFERASE 10 U/L (15-37); BILIRUBIN,TOTAL 0.3 MG/DL (0.2-1.0)
[2020-04-14 15:43] LABS: ALANINE AMINOTRANSFERASE 13 U/L (12-78)
[2020-04-14] MEDS ORDERED: CRANBERRY450 M5 PO (16:22)
[2020-04-14] MEDS ORDERED: MULTIVITAMINS1 EAC8 ORAL (16:22)
[2020-04-14] MEDS ORDERED: OYSCO 500+D TA1 EAC1 PO (16:22)
[2020-04-14] MEDS ORDERED: DEPAKOTE250 MG PO (16:22)
[2020-04-14] MEDS ORDERED: ACETAMINOPHEN500 MG ORAL (16:22)
[2020-04-14] MEDS ORDERED: TRAMADOL HCL50 MG ORAL (16:22)
[2020-04-14] MEDS ORDERED: MILK OF MA400 MG/51 ORAL (16:22)
[2020-04-14] MEDS ORDERED: ASPIRIN81 MG ORAL (16:22)
[2020-04-14] MEDS ORDERED: DOCUSATE SODIU100 M2 ORAL (16:22)
[2020-04-14] MEDS ORDERED: NORVASC10 MG ORAL (16:22)
[2020-04-14] MEDS ORDERED: FERROUS SULFAT325 MG ORAL (16:22)
[2020-04-14 16:30] VITALS: BP 128/71
--- NOTE | 2020-04-14 16:46 | NUR ---
ED Nurse Note: Splint applied to left lower leg by technical education teacher
--- NOTE | 2020-04-14 16:47 | Diagnostic Imaging Report ---
EXAM: X-RAY XRAY Ankle 2v L CLINICAL HISTORY: Trauma with ankle pain. COMPARISON: None FINDINGS: Total of 2 views of the left ankle were obtained. There is diffuse osteopenia. A subtle nondisplaced fracture of the medial malleolus demonstrated. No definite other fractures seen to the extent visualized. Joint spaces are unremarkable. There is soft tissue swelling. IMPRESSION: SUBTLE NONDISPLACED FRACTURE OF THE MEDIAL MALLEOLUS AND SOFT TISSUE SWELLING.
--- NOTE | 2020-04-14 16:53 | Diagnostic Imaging Report ---
EXAM: X-RAY XRAY Leg Lower Tib Fib 2v L CLINICAL HISTORY: Trauma with leg pain. COMPARISON: None FINDINGS: Total of 2 views of the left tibia and fibula were obtained. Positionings limited. Patient unable to cooperate for exam. There is a fracture of the medial malleolus. This is better seen on the ankle study there is deformity in the mid to distal shaft of the fibula suggestive of old healed injury. No other definite acute fractures seen. Degenerative changes of the knee noted with chondrocalcinosis. Vascular calcifications noted. IMPRESSION: FRACTURE OF THE MEDIAL MALLEOLUS. PROBABLE OLD FRACTURE DEFORMITY OF THE DISTAL FIBULAR SHAFT. DEGENERATIVE CHANGES OF THE KNEE WITH CHONDROCALCINOSIS..
[2020-04-14 18:20] VITALS: BP 124/76
--- NOTE | 2020-04-14 18:25 | NUR ---
ED Nurse Note: Report given to Ash GLASGOW
--- NOTE | 2020-04-14 19:24 | NUR ---
ED Nurse Note: Handoff report given to Radha GLASGOW
[2020-04-14 20:00] VITALS: BP 162/95
[2020-04-14] MEDS ORDERED: Fleet's Enema 133ml RECTAL PRN (20:45)
[2020-04-14] MEDS ORDERED: Acetaminophen 500mg (ES) tab ORAL PRN (20:45)
[2020-04-14] MEDS: Depakote 500mg tab ORAL SCH ×2 (21:00→22:04)
--- NOTE | 2020-04-14 21:00 | NUR ---
NURSE NOTES: Received patient from ED on [facility] accompanied by a staff. Confused and uncooperative. With IV access on the right forearm wrapped with kerlix. With ammy wrap on the left lower extremity. Skin assessment done. No open wound. Optifoam was placed on sacral for protection. Belongings checked. Call light was given for help. Bed in lowest, lock engaged and alarm on. Moved to a closer room. Obtained admission orders from Dr. Moreira.
[2020-04-14] MEDS: traMADol 50mg tab ORAL PRN (22:04)
[2020-04-15] VITALS: BP 148/86
--- NOTE | 2020-04-15 00:30 | History and Physical Report ---
DATE OF ADMISSION: 04/14/2020 HISTORY OF PRESENT ILLNESS: Patient is status post fall at the facility came in with left ankle fracture for evaluation of that. Patient is a poor historian and does complain of pain where the fracture is. Patient has history of CVA, osteoporosis, and dementia of Alzheimer's type. Denies nausea, vomiting, or diarrhea. Denies fever or chills. Denies shortness of breath. X-ray showed a nondisplaced medial malleolar fracture. PAST MEDICAL HISTORY: Significant for hypertension, CVA, constipation, mood disorder, dementia of Alzheimer's type, iron deficiency anemia. PAST SURGICAL HISTORY: Denies. FAMILY HISTORY: Noncontributory. SOCIAL HISTORY: Denies of history of smoking, history of drug abuse, history of alcohol abuse, denies all of them. ALLERGIES: No known allergies. Comes from a facility. MEDICATIONS: Colace, donepezil, bisacodyl, aspirin, amlodipine, multivitamin, tramadol. REVIEW OF SYSTEMS: HEENT: Denies headaches. RESPIRATORY: Denies shortness of breath. Denies cough. CARDIOVASCULAR: Denies chest pain. GASTROINTESTINAL: Denies nausea, vomiting, or diarrhea. EXTREMITIES: Reports foot pain where the fracture is, however, a poor historian cannot rely upon the patient's history. PHYSICAL EXAMINATION: VITAL SIGNS: Temperature 98.2, pulse is 82, blood pressure is 127/68. HEENT: PERRLA. CHEST: Clear to auscultation. CARDIOVASCULAR: Regular rate and rhythm. No murmurs or extra sounds. GASTROINTESTINAL: Soft, nontender, nondistended. No organomegaly. EXTREMITIES: Does have decreased range of motion on the left lower extremity due to fracture. Dorsalis pedis pulses are present. LABORATORY DATA: WBC of 4.6, hemoglobin 10.9, platelets 148. Sodium 142, potassium 4.9, BUN of 39, creatinine 1.3. ASSESSMENT AND PLAN: Malleolar fracture, rule out distal tibial fracture. Dr. Brandon Cochran and Dr. Remy have been consulted to see the patient. The patient was placed in a splint and we will see what the surgeon recommends. Ngozi Moreira M.D. DR: AIDAN JOB#: [id number] CC:
[2020-04-15 04:00] VITALS: BP 150/82
--- NOTE | 2020-04-15 07:33 | NUR ---
HAND-OFF: Important Events on Shift: Admission Patient Status: Stable Diet: Regular mechanical soft Pending Orders: Pending Results/Labs: swabs Pending MD notification: Latest Vital Signs: Temperature 97.0 , Pulse 88 , B/P 150 /82 , Respiratory Rate 21 , O2 SAT 94 , Room Air, O2 Flow Rate . Vital Sign Comment: watch out for BP Latest Caba Fall Score: 85 Fall Risk: High Risk Safety Measures: Call light Within Reach, Bed Alarm Zone 1, Side Rails Side Rails x2, Bed position Low and Locked. Fall Precautions: Yellow Socks Yellow Gown Door Sign Patient Fall Education Report given to MYAH Hernandez.
--- NOTE | 2020-04-15 07:35 | NUR ---
NURSE NOTES: RECEIVED PATIENT A/A/OX2, IMPULSIVE AND HIDES HER FACE UNDER THE SHEET. REFUSED TO SHOW HER FACE @ THIS TIME. NO ACUTE CARDIO-RESP DISTRESS NOTED. IV ACCESS PATENT AND INTACT. KEPT BED IN THE LOWEST POSITION. SIDERAILS ARE UPX3. CALL LIGHT IS WITHIN REACH. BED BRAKES AND ALARM ENGAGED. LOCK @ ALL TIMES. WILL CONT TO MONITOR.
[2020-04-15 08:00] VITALS: BP 145/72
[2020-04-15] MEDS: Depakote 500mg tab ORAL SCH ×2 (08:16→21:03)
[2020-04-15] MEDS ORDERED: Docusate 100mg cap ORAL SCH (09:00)
[2020-04-15] MEDS ORDERED: Calcium Carbonate 500mg w/Vit D 200iu tab ORAL SCH (09:00)
[2020-04-15] MEDS ORDERED: Aspirin Baby 81mg ORAL SCH (09:00)
[2020-04-15] MEDS ORDERED: Milk of Magnesia 30ml Ud ORAL SCH (09:00)
[2020-04-15] MEDS ORDERED: Multivitamin w/Minerals tab ORAL SCH (09:00)
--- NOTE | 2020-04-15 09:08 | NUR ---
NURSE NOTES: DR. SOUTH CALLED AND OBTAINED ORDERS FOR LEFT CAM WALKER BOOT AND NWB X6WKS. SPOKE WITH ANA MARÍA CATHERINE TO ARRANGE. WILL CONT TO MONITOR.
--- NOTE | 2020-04-15 09:47 | NUR ---
SHUCKER NOTE:DME ORDER FOR LEFT CAM WALKER BOOT HAS BEEN REFERRED TO [facility] P: [phone] F: [phone]
--- NOTE | 2020-04-15 10:16 | NUR ---
*-*DISCHARGE PLANNING*-* PATIENT HAS BEEN REFERRED [facility] P: [phone]
--- NOTE | 2020-04-15 10:49 | NUR ---
NURSE NOTES: MADE DAUGHTER AWARE OF THE DISCHARGE. SPOKE WITH NORA MCKEON. WILL CONT TO MONITOR. GAVE REPORT TO KALPANA AT [facility]. WILL CONT TO MONITOR.
--- NOTE | 2020-04-15 11:00 | NUR ---
PT EVALUATION NOTE Patient seen for initial evaluation. Patient presents with generalized weakness and impaired functional mobility s/p L tibia fracture. Patient is NWB LLE x 6 weeks. Patient is alert, oriented x1, able to follow some simple commands inconsistently. Patient requires mod assist for bed mobility. Patient requires mod assist of 2 with use of FWW for sit to stand transfers, and requires total assist to maintain NWB LLE in standing. Patient will benefit from skilled inpatient PT intervention to increase strength and postural stability for improved level of functional mobility and safety. Recommend discharge to SNF once medically cleared by MD. Addendum: 04/15/20 at 1311 by LEELA PACHECO PT Amended: Links added.
[2020-04-15 12:08] VITALS: BP 136/76
--- NOTE | 2020-04-15 12:20 | NUR ---
SALES AND LEASING CONSULTANT NOTE:DME S/W [place] AT [facility] [phone]. CONFIRMED RECEIPT OF DME ORDER. STATES SHE WILL CALL BACK WITH UPDATE ON CLINICIAN VISIT TO PATIENT RE CLAUDY BOOT
--- NOTE | 2020-04-15 12:30 | NUR ---
CASE MANAGEMENT:INITIAL REVIEW 84 YR OLD FEMALE BIBA FROM [facility] CC;GENERAL COMPLAINT SI;TIBIA FRACTURE 98.2 82 18 168/95 95% ON RA WBC 4.6 H/H 10.9/35.1 BUN 29 ALB 2.8 COVID RAPID ~ NEGATIVE TIB/FIB XRAY ~ FRACTURE OF THE MEDIAL MALLEOLUS. IS;EXTREMITY SPLINTED ADMITTED TO MED SURG MED SURG STATUS DCP;FROM [facility]
--- NOTE | 2020-04-15 12:30 | NUR ---
*-*DISCHARGE PLANNING*-* PATIENT HAS BEEN REFERRED [facility] P: [phone] FOR NURSE TO NURSE REPORT ROOM# 7.[facility] SET FOR WILL CALL S/W LAMIN Holcomb S/W PRASHANT MOCTEZUMA, WHO IS IN AGREEMENT WITH DISCHARGE PLANNING.
--- NOTE | 2020-04-15 15:29 | NUR ---
NURSE NOTES: awaiting for the cam boot to be brought and placed to patient prior discharge today. will cont to monitor.
[2020-04-15 16:00] VITALS: BP 142/87
--- NOTE | 2020-04-15 16:28 | NUR ---
NURSE HAND-OFF: Important Events on Shift: AWAITING FOR CAM BOOT TO BE PLACED Patient Status: STABLE Diet: MECH SOFT FINELY CHOPPED Pending Orders: NONE Pending Results/Labs: Pending MD notification: Latest Vital Signs: Temperature 97.3 , Pulse 77 , B/P 142 /87 , Respiratory Rate 18 , O2 SAT 97 , Room Air, O2 Flow Rate . Vital Sign Comment: Latest Caba Fall Score: 85 Fall Risk: High Risk Safety Measures: Call light Within Reach, Bed Alarm Zone 2, Side Rails Side Rails x3, Bed position Low and Locked. Fall Precautions: Yellow Socks Yellow Gown Door Sign Patient Fall Education Report given to [place].
--- NOTE | 2020-04-15 16:28 | Consultation ---
History of Present Illness General Date patient seen: Apr 15, 2020 Time patient seen: 16:22 Chief Complaint: General Complaint Referring physician: Dr Moreira Reason for Consultation: ankle fracture Present Illness Allergies: Coded Allergies: No Known Allergies (Unverified , 02/09/19) Medication History Scheduled Acetaminophen* (Tylenol Extra Strength*), 1,000 MG ORAL Q6H, (Reported) Amlodipine Besylate (Norvasc), 10 MG ORAL DAILY, (Reported) Amlodipine Besylate (Norvasc), 10 MG ORAL DAILY, (Reported) Aspirin* (Aspirin*), 81 MG ORAL DAILY, (Reported) Aspirin* (Aspirin*), 81 MG ORAL DAILY, (Reported) Divalproex Sodium* (Depakote*), 500 MG PO Q12HR, (Reported) Docusate Sodium (Docusate Sodium), 100 MG ORAL DAILY, (Reported) Docusate Sodium* (Colace*), 100 MG ORAL DAILY, (Reported) Donepezil Hcl* (Aricept*), 10 MG ORAL DAILY, (Reported) Ferrous Sulfate* (Ferrous Sulfate*), 325 MG ORAL DAILY, (Reported) Magnesium Hydroxide* (Milk Of Magnesia*), 30 ML ORAL DAILY, (Reported) Memantine Hcl* (Namenda*), 10 MG ORAL DAILY, (Reported) Multivitamin With Minerals (Multivitamins With Minerals*), 1 TAB ORAL DAILY, ( Reported) Multivitamin With Minerals (Multivitamins With Minerals*), 1 TAB ORAL DAILY, ( Reported) Scheduled PRN Acetaminophen* (Acetaminophen 325MG Tablet*), 650 MG ORAL Q4H PRN for Pain Scale (3-5), (Reported) Tramadol Hcl* (Ultram*), 50 MG ORAL Q6H PRN for For Pain, (Reported) Tramadol Hcl* (Ultram*), 50 MG ORAL Q6H PRN for For Pain, (Reported) Miscellaneous Medications Bisacodyl (Dulcolax), 10 MG RC, (Reported) Ca Carb/Vit D3/Mag Ox/Zn Oxide (Yusef Mag Zinc + D Tablet), 1 EACH PO, (Reported) Calcium Carbonate/Vitamin D3 ([place]co 500+D Tablet), 1 EACH PO, (Reported) Cranberry Fruit (Cranberry), 450 MG PO, (Reported) Cranberry Fruit Concentrate (Cranberry), 450 MG PO, (Reported) Patient History Limited by: other - mental state History Provided By: Medical Record Healthcare decision maker N Resuscitation status Advanced Directive on File Past Medical/Surgical History Past Medical/Surgical History: (1) Blind left eye (2) Acute encephalopathy (3) HTN (hypertension) (4) Electrolyte abnormality Family History Family History: (1) Elevated brain natriuretic peptide (BNP) level (2) Hypothyroid (3) Syncope Review of Systems ROS Narrative Unable to provide 2/2 mental status Physical Exam General Appearance: no apparent distress Cardiovascular/Chest: normal peripheral pulses Extremities: no edema - RLE, other - Splint noted on LLE Skin Exam: normal pigmentation, other - no open wounds on RLE, and on toes left foot Musculoskeletal: other - contractures of toes noted bilateral Last 24 Hour Vital Signs Date Time Temp Pulse Resp B/P (MAP) Pulse Ox O2 Delivery O2 Flow Rate FiO2 04/15/20 12:08 97.8 71 18 136/76 (96) 99 04/15/20 10:50 Room Air 04/15/20 08:19 76 145/72 04/15/20 08:00 97.2 75 18 145/72 (96) 99 04/15/20 04:00 97.0 88 21 150/82 (104) 94 04/15/20 00:00 98.0 88 20 148/86 (106) 96 04/14/20 22:27 Room Air 04/14/20 20:00 97.7 95 20 162/95 (117) 95 04/14/20 19:40 98.0 82 18 124/76 98 Room Air 83 04/14/20 18:20 98.0 83 18 124/76 98 Room Air 04/14/20 16:30 98.1 82 17 128/71 96 Room Air Intake and Output 04/14/20 04/15/20 19:00 07:00 Output Total 0 ml Balance 0 ml Output Urine Total 0 ml # Voids 2 Height (Feet): 5 Height (Inches): 0.00 Weight (Pounds): 109 Medications Current Medications Medications (Trade) Dose Ordered Sig/Janelle Route PRN Reason Start Time Stop Time Status Last Admin Dose Admin Acetaminophen (Tylenol) 650 mg Q4H PRN ORAL PAIN 1-3 / T>100.5 04/14/20 20:45 05/14/20 20:44 Acetaminophen (Tylenol) 1,000 mg Q6H PRN ORAL Moderate Pain (Pain Scale 4-6) 04/14/20 20:45 05/14/20 20:44 Amlodipine Besylate (Norvasc) 10 mg DAILY ORAL 04/15/20 09:00 05/15/20 08:59 04/15/20 08:19 Aspirin (ASA) 81 mg DAILY ORAL 04/15/20 09:00 05/30/20 08:59 04/15/20 08:16 Calcium/Vitamin D (OsCal D) 1 tab DAILY ORAL 04/15/20 09:00 07/14/20 08:59 04/15/20 08:16 Divalproex Sodium (Depakote) 500 mg Q12HR ORAL 04/14/20 21:00 05/14/20 20:59 04/15/20 08:16 Docusate Sodium (Colace) 100 mg DAILY ORAL 04/15/20 09:00 05/15/20 08:59 04/15/20 08:16 Ferrous Sulfate (Feosol) 325 mg DAILY ORAL 04/15/20 09:00 07/14/20 08:59 04/15/20 08:16 Magnesium Hydroxide (Mom) 30 ml DAILY ORAL 04/15/20 09:00 05/15/20 08:59 04/15/20 08:16 Multivitamins Therapeutic (Therapeutic Multivitamin) 1 ea DAILY ORAL 04/15/20 09:00 05/15/20 08:59 04/15/20 08:16 Sodium Phosphate (Fleet's Sodium Phosl Enema) 133 ml DAILYPRN PRN RECTAL Constipation 04/14/20 20:45 05/14/20 20:44 Tramadol HCl (Ultram) 50 mg Q6H PRN ORAL Severe Pain (Pain Scale 7-10) 04/14/20 20:45 04/21/20 20:44 Objective Narrative Patient : CAPRI FALL Referring Physician: Calvin Campuzano MD ID Number: [id number] Service Date: 04/14/20 : 1935 Report Date: 04/14/20 Gender: F Accession No.: [id number] Location: EMR Procedure: XRAY Ankle 2v L EXAM: X-RAY XRAY Ankle 2v L CLINICAL HISTORY: Trauma with ankle pain. COMPARISON: None FINDINGS: Total of 2 views of the left ankle were obtained. There is diffuse osteopenia. A subtle nondisplaced fracture of the medial malleolus demonstrated. No definite other fractures seen to the extent visualized. Joint spaces are unremarkable. There is soft tissue swelling. IMPRESSION: SUBTLE NONDISPLACED FRACTURE OF THE MEDIAL MALLEOLUS AND SOFT TISSUE SWELLING. Dictated By: Frank Finch MD Electronically Signed By: Frank Finch MD Signed Date/Time 04/14/20 2459 CC: Calvin Campuzano MD Assessment/Plan Assessment/Plan: A/ Nondisplaced medial malleolar fracture P/ No surgical intervention indicated Cont with splint/cast to be changed in 3 wks or can be replaced with CAM boot upon discharge Thank you Brandon Valdivia DPM Apr 15, 2020 16:28
--- NOTE | 2020-04-15 16:30 | Consultation ---
DATE OF CONSULTATION: 04/14/2020 CONSULTING PHYSICIAN: Jimmy Remy MD HISTORY OF PRESENT ILLNESS: The patient is an 84-year-old female who presents with complaints of left ankle pain. She presented from a group home facility and transferred to the ER for further care and recommendation ankle. Imaging study showed fracture, therefore consultation obtained for further care and recommendation. PAST MEDICAL HISTORY: CVA, dementia, osteoporosis, hypertension. PAST SURGICAL HISTORY: Reviewed from the intake chart. MEDICATIONS: Reviewed from the intake chart. SOCIAL HISTORY: Reviewed from the intake chart. PHYSICAL EXAMINATION: VITAL SIGNS: Afebrile. Stable vital signs. GENERAL: The patient is alert and oriented. EXTREMITIES: She medial malleolus. Dorsalis pedis +2. IMAGING STUDIES: Show what appears to be a fracture through the distal tibia along the medial malleolus. DISCUSSION: At this point, we are going to place her in a splint in the ER. We are going to place her in a CAM walker boot. She is nonweightbearing for 6 weeks. She can get imaging studies at 6 weeks, at which point, if there is no displacement of the mortise, she can begin weightbearing because this is a nondisplaced fracture. Jimmy Remy M.D. DR: CORI JOB#: [id number] CC:
--- NOTE | 2020-04-15 16:30 | NUR ---
NURSE NOTES: Received report from out-going nurse. No acute distress noted on pt at this time. Transportation will be scheduled after the Cam Boot is delivered.
--- NOTE | 2020-04-15 19:24 | NUR ---
NURSE HAND-OFF: Important Events on Shift:AWAITING AMBULANCE LABORATORY TECHNOLOGIST Patient Status:AWAKE Diet: MECHANICAL SOFT FINELY CHOPPED Pending Orders: Pending Results/Labs: Pending MD notification: Latest Vital Signs: Temperature 97.3 , Pulse 77 , B/P 142 /87 , Respiratory Rate 18 , O2 SAT 97 , Room Air, O2 Flow Rate . Vital Sign Comment: Latest Caba Fall Score: 85 Fall Risk: High Risk Safety Measures: Call light Within Reach, Bed Alarm Zone 2, Side Rails Side Rails x3, Bed position Low and Locked. Fall Precautions: Yellow Socks Yellow Gown Door Sign Patient Fall Education Report given to [place].
--- NOTE | 2020-04-15 19:30 | NUR ---
NURSE NOTES: Received pt on the bed awake, A&o x1 ,verbal and confused. No sob, fever, cough, and pain. Iv is intact and asymptomatic. Pt is waiting private amabulance to get d/c. D/C paper is done. Bed is in the lowest position,locked,alarm on and call light within reach. We will keep monitoring the pt.
[2020-04-15 20:00] VITALS: BP 145/98
[2020-04-15] MEDS: traMADol 50mg tab ORAL PRN (21:02)
--- NOTE | 2020-04-15 21:16 | NUR ---
NURSE NOTES: pt left the facility with two [facility] paramedics in stable condition.
--- NOTE | 2020-04-17 04:30 | Consultation ---
DATE OF CONSULTATION: 04/16/2020 CONSULTING PHYSICIAN: Christiano Fernández MD HISTORY OF PRESENT ILLNESS: The patient is an 84-year-old female who is well known to me from [facility]. The patient apparently fell and at that time had a left ankle fracture. The patient has history of CVA, dementia, psychotic disorder, and agitation. During evaluation, the patient was confused and has behavioral issues including agitation. PAST PSYCHIATRIC HISTORY: Dementia. PAST MEDICAL HISTORY: CVA, hypertension, constipation, and anemia. ALLERGIES: No known drug allergies. SUBSTANCE ABUSE HISTORY: No known history of illicit drug use or alcohol. MENTAL STATUS EXAMINATION: The patient is awake, disoriented. Mood is anxious. Affect is flat. Thought process is concrete. Thought content, no suicidal or homicidal ideation. Cognition is impaired. Insight and judgment is impaired. ASSESSMENT: Oran I Dementia. Dementia with behavioral disturbance. Oran II Deferred. Oran III Fracture of the ankle. Oran IV Low. Oran V ____ PLAN: 1. We will start the patient on Depakote 500 b.i.d. 2. We will provide the patient with reality orientation and supportive therapy. Christiano Fernández M.D. DR: Aura JOB#: [id number] CC:
--- NOTE | 2020-04-17 12:57 | Discharge Summary ---
Discharge Summary Discharge Summary _ DATE OF ADMISSION: 04/14/2020 DATE OF DISCHARGE: 04/15/2020 DISCHARGED BY: Dr. Ngozi Roque CONSULTANTS: Dr. Christiano Remy BRIEF HOSPITAL COURSE: Patient is an 84-year-old female, who is status post fall at the facility, came in with left ankle fracture. She has history of CVA, osteoporosis, dementia of Alzheimer's type. She denied any nausea or vomiting, denied diarrhea, denied fever or chills. Upon evaluation at ED, vital signs were stable. Blood work did not show any leukocytosis. Hemoglobin hematocrit were stable. Electrolytes were normal. EKG showed sinus rhythm with nonspecific T wave changes. X-ray of the left leg and ankle showed nondisplaced medial malleolus fracture. Patient was admitted for orthopedic evaluation. Patient was admitted to medical floor. Imaging studies were done and reviewed. Imaging showed what appears to be a fracture through the distal tibia along the medial malleolus. Patient was placed on splint at ED. She was given CAM Walker boot. She was advised nonweightbearing status for 6 weeks. Advised to repeat imaging studies post 6 weeks at which point, if no displacement of the mortise, she can begin weightbearing. She also underwent podiatry evaluation. No surgical intervention was indicated. She was continued on Depakote for dementia. She underwent physical therapy evaluation. Patient was eventually discharged to SNF. FINAL DIAGNOSES: Nondisplaced left medial malleolus fracture Dementia with behavioral disturbance DISPOSITION: Patient was discharged to [facility]. DISCHARGE MEDICATIONS: Refer to Discharge Medication List. DISCHARGE INSTRUCTIONS: Follow-up with ortho in 6 weeks. I have been assigned to complete a discharge summary on this account, I was not involved with the patient's management.--LAUREL Bliss Jacqueline Robles NP Apr 17, 2020 12:57
== END 2020-04-15 21:15 | DRG 563 ==
LOC: EDBD 14:24 → EDUNIT# 14:24 → EMR 15:00 → 4E 15:10 → EDBEDREQ 18:06 → 4E 20:18
DX: S82.55XA Nondisplaced fracture of medial malleolus of left tibia, initial encounter for closed fracture (principal); F02.81 Dementia in other diseases classified elsewhere, unspecified severity, with behavioral disturbance; G30.9 Alzheimer's disease, unspecified; W19.XXXA Unspecified fall, initial encounter; Y92.129 Unspecified place in nursing home as the place of occurrence of the external cause; M81.0 Age-related osteoporosis without current pathological fracture; Z86.73 Personal history of transient ischemic attack (TIA), and cerebral infarction without residual deficits; I10 Essential (primary) hypertension; H54.62 Unqualified visual loss, left eye, normal vision right eye; F29 Unspecified psychosis not due to a substance or known physiological condition
CPT/HCPCS: 29515; 36415; 80053; 85025; 85610; 85730; 87081; 93005; 99285; U0002